=== PATIENT | female | born 1940 | race African-American/Black ===

== ENCOUNTER 2018-07-01 14:56 | Observation (INO) | payer OTHER ==
--- OUTSIDE RECORDS SUMMARY | 2018-07-01 14:59 | XMS REPORT | Clinical Summary ---
:1940 Author Organization [facility] Address [address] [place] [address] Care Team Providers Name Role Phone Bonifacio Sahu MD Primary Care Provider Allergies Active Allergy Reactions Severity Noted Date Comments Codeine Itching, Rash Low 09/19/2015 Sulfa (Sulfonamide Antibiotics) Other (See Comments) 09/19/2015 headache Medications Medication Sig Dispensed Refills Start Date End Date Status metoprolol succinate XL Take 50 mg by 0 09/23/2015 Active (TOPROL-XL) 50 MG 24 hr mouth once daily. tablet Take on am of surgery amLODIPine (NORVASC) 10 Take 10 mg by 2 09/23/2015 Active MG tablet mouth once daily. Take of surgery levothyroxine Take 75 mcg by 0 10/24/2015 Active (SYNTHROID, LEVOTHROID) mouth daily. Take 75 MCG tablet am of surgery pantoprazole (PROTONIX) Take 40 mg by 0 10/24/2015 Active 40 MG EC tablet mouth daily. Take am surgery atorvastatin (LIPITOR) Take 40 mg by 0 11/26/2015 Active 40 MG tablet mouth daily. aspirin (ECOTRIN) 81 MG Take 81 mg by 0 Active enteric coated tablet mouth daily. alendronate (FOSAMAX) TAKE 1 TABLET BY 4 tablet 4 08/09/2016 Active 70 MG tablet MOUTH EVERY WEEK IN THE MORNING FOR 28 DAYS Active Problems Problem Noted Date Primary hyperparathyroidism 01/14/2016 Family History Medical History Relation Name Comments Arthritis Daughter Arthritis Mother Diabetes Mother 2009 Congenital heart disease Sister Relation Name Status Comments Daughter Alive Mother Sister Social History Tobacco Use Types Packs/Day Years Used Date Never Smoker Alcohol Use Drinks/Week oz/Week Comments No Sex Assigned at Date Recorded Not on file Job Start Date Occupation Industry Not on file Not on file Not on file Travel History Travel Start Travel End No recent travel history available. Last Filed Vital Signs Not on file Plan of Treatment Health Maintenance Due Date Last Done Comments SHINGLES VACCINES (#1) 02/18/1990 65+ PNEUMOCOCCAL VACCINE (1 of 2 - PCV13) 02/18/2005 PNEUMOCOCCAL POLYSACCHARIDE VACCINE AGE 65 AND OVER 02/18/2005 INFLUENZA VACCINE 11/23/2017 Results Not on fileafter 06/30/2017 Insurance Payer Benefit Plan / Group Subscriber ID Type Phone Address MEDICARE MEDICARE PART A AND B xxxxxxxxxx Medicare [place], [place] AETNA AETNA HMO,POS,EPO, MC/EC xxxxxxxxx HMO Advance Directives Patient has advance care planning documents on file. For more information, please contact:Ruben [address] [place] [address]
[2018-07-01 16:25] LABS: Absolute Lymphocytes (CBC) 1.1 K/uL (0.7-4.9); Absolute Monocytes 0.4 K/uL (0.1-1.3); Absolute Neutrophil 3.8 K/uL (1.8-8.0); Basophils % 0.9 % (0-1.3); Eosinophils % 1.2 % (0-4.4); Lymphocytes % 20.5 % (15.3-44.8); Monocytes % 6.9 % (3.3-12.3); RBC Red Blood Cell Count 4.81 M/uL (3.86-4.86)
[2018-07-01 16:31] LABS: Protime INR 1.01
[2018-07-01 16:45] LABS: ALT/SGPT 19 U/L (12-78); AST/SGOT 19 U/L (15-37); Albumin 3.3 g/dL (3.4-5.0); Alkaline Phosphatase 105 U/L (45-117); BUN Blood Urea Nitrogen 16 mg/dL (7-18); Bicarbonate 27 mmol/L (21-32); Bilirubin Direct 0.1 mg/dL (0-0.2); Bilirubin Total 0.3 mg/dL (0.2-1.0); Glucose Level 120 mg/dL (74-106); Magnesium 1.8 mg/dL (1.8-2.4); NT PRO-BNP 78 pg/mL (<450); Potassium 3.9 mmol/L (3.5-5.1); Protein, Total 7.4 g/dL (6.4-8.2); Sodium Level 144 mmol/L (136-145); Troponin (Emerg Dept Use Only) < 0.02 ng/mL (0.0-0.045)
--- NOTE | 2018-07-01 16:52 | RAD REPORT ---
EXAM DESCRIPTION: CT - Head Brain Wo Cont - 07/01/2018 4:27 pm CLINICAL HISTORY: Dizziness, syncope COMPARISON: None. TECHNIQUE: Axial 5 mm thick images of the head were obtained without IV contrast. All CT scans are performed using dose optimization technique as appropriate and may include automated exposure control or mA/KV adjustment according to patient size. FINDINGS: No intracranial hemorrhage, mass, edema or shift of mid-line structures. No acute cortical based infarction. Minimal atrophy changes are present. Chronic ischemic changes are present. Ventric les are in proportion to the amount of volume loss. No abnormal extra-axial fluid collections. Physio logic and arterial calcifications are present. Mastoid air cells and visualized portions of the paranasal sinuses are clear. No acute bony findings. IMPRESSION: Atrophy and chronic ischemic changes are present but no acute intracranial finding ident ifiable.
--- NOTE | 2018-07-01 16:55 | RAD REPORT ---
EXAM DESCRIPTION: RAD - Chest Single View - 07/01/2018 4:36 pm CLINICAL HISTORY: Syncope, shortness of breath COMPARISON: April 2011 TECHNIQUE: AP portable chest image was obtained 1619 hours . FINDINGS: No focal mass or consolidation. Lung markings are prominent and increased over comparison. Heart size is increased slightly and there is a mild increase in vasculature. No measurable pleural effusion and no pneumothorax. No acute bony abnormality seen. No acute aortic findings suspected. IMPRESSION: Heart, vasculature and interstitial markings are all slightly increased from the compari son. Findings are suspicious for mild failure or volume overload.
--- NOTE | 2018-07-01 17:33 | EDPHYS ---
Physician Documentation [facility] Name: Juliana Mclaughlin Age: 78 yrs Sex: Female : 1940 Arrival Date: 07/01/2018 Time: 14:57 Bed 16 Private MD: Bonifacio Yeager R ED Physician Magan Haji HPI: 07/01 16:03 This 78 yrs old Black Female presents to ER via Wheelchair with complaints of Dizziness.jr8 16:03 The patient presents with dizziness. Onset: The symptoms/episode began/occurred jr8 acutely, yesterday. Context: occurred at home, occurred while the patient was at rest. Modifying factors: The symptoms are alleviated by nothing, the symptoms are aggravated by changing position. Associated signs and symptoms: Pertinent positives: syncope. Severity of symptoms: At their worst the symptoms were moderate in the emergency department the symptoms have resolved. Patient's baseline: Neuro: alert and fully oriented, Motor: no deficits, Ambulation: walks without assistance, Speech: normal. The patient has not experienced similar symptoms in the past. The patient has not recently seen a physician. Historical: - Allergies: 15:11 Sulfa (Sulfonamide Antibiotics); ch - Home Meds: 15:11 atorvastatin 40 mg oral tab 1 tab once daily [Active]; pantoprazole 40 mg oral TbEC 1 ch tab once daily [Active]; Calcium Carbonate Oral [Active]; metoprolol tartrate 50 mg Oral tab 1 tab once daily [Active]; amlodipine 10 mg tab 1 tab once daily [Active]; levothyroxine 75 mcg tab 1 tab once daily [Active]; aspirin 81 mg Oral chew 1 tab once daily [Active]; - PMHx: 15:11 Hypertension; Hyperlipidemia; CARPEL TUNNEL, VERTIGO; Arthritis; ch - PSHx: 15:11 CARDIAC STENTS; ch - Immunization history:: Adult Immunizations up to date, Pneumococcal vaccine is up to date, Flu vaccine is not up to date. - Social history:: Smoking status: Patient/guardian denies using tobacco, Patient/guardian denies using alcohol, street drugs. - Ebola Screening: : Patient negative for fever greater than or equal to 101.5 degrees Fahrenheit, and additional compatible Ebola Virus Disease symptoms Patient denies exposure to infectious person Patient denies travel to an Ebola-affected area in the 21 days before illness onset No symptoms or risks identified at this time. ROS: 16:03 Eyes: Negative for injury, pain, redness, and discharge, ENT: Negative for injury, jr8 pain, and discharge, Neck: Negative for injury, pain, and swelling, Cardiovascular: Negative for chest pain, palpitations, and edema, Respiratory: Negative for shortness of breath, cough, wheezing, and pleuritic chest pain, Abdomen/GI: Negative for abdominal pain, nausea, vomiting, diarrhea, and constipation, Back: Negative for injury and pain, MS/Extremity: Negative for injury and deformity, Skin: Negative for injury, rash, and discoloration. 16:03 Neuro: Positive for dizziness, syncope. Exam: 16:03 Eyes: Pupils equal round and reactive to light, extra-ocular motions intact. Lids and jr8 lashes normal. Conjunctiva and sclera are non-icteric and not injected. Cornea within normal limits. Periorbital areas with no swelling, redness, or edema. ENT: Nares patent. No nasal discharge, no septal abnormalities noted. Tympanic membranes are normal and external auditory canals are clear. Oropharynx with no redness, swelling, or masses, exudates, or evidence of obstruction, uvula midline. Mucous membranes moist. Neck: Trachea midline, no thyromegaly or masses palpated, and no cervical lymphadenopathy. Supple, full range of motion without nuchal rigidity, or vertebral point tenderness. No Meningismus. Cardiovascular: Regular rate and rhythm with a normal S1 and S2. No gallops, murmurs, or rubs. Normal PMI, no JVD. No pulse deficits. Respiratory: Lungs have equal breath sounds bilaterally, clear to auscultation and percussion. No rales, rhonchi or wheezes noted. No increased work of breathing, no retractions or nasal flaring. Abdomen/GI: Soft, non-tender, with normal bowel sounds. No distension or tympany. No guarding or rebound. No evidence of tenderness throughout. Back: No spinal tenderness. No costovertebral tenderness. Full range of motion. Skin: Warm, dry with normal turgor. Normal color with no rashes, no lesions, and no evidence of cellulitis. MS/ Extremity: Pulses equal, no cyanosis. Neurovascular intact. Full, normal range of motion. Neuro: Awake and alert, GCS 15, oriented to person, place, time, and situation. Cranial nerves II-XII grossly intact. Motor strength 5/5 in all extremities. Sensory grossly intact. Cerebellar exam normal. Normal gait. Vital Signs: 15:11 BP 165 / 85; Pulse 67; Resp 16; Temp 97.5; Pulse Ox 100% on R/A; Weight 84.37 kg; ch Height 5 ft. 9 in. (175.26 cm); Pain 6/10; 16:10 BP 162 / 87; Pulse 68; Resp 17; Pulse Ox 99% on R/A; rb1 17:10 BP 177 / 89; Pulse 69; Resp 14; Pulse Ox 99% on R/A; rb1 19:00 BP 174 / 88; Pulse 68; Resp 16; Pulse Ox 99% on R/A; oe 20:00 BP 160 / 85; Pulse 70; Resp 16; Pulse Ox 99% on R/A; oe 21:00 BP 170 / 92; Pulse 72; Resp 16; Pulse Ox 99% on R/A; oe 21:38 BP 170 / 86; Pulse 74; Resp 20; Pulse Ox 97% on R/A; Pain 0/10; lp1 15:11 Body Mass Index 27.47 (84.37 kg, 175.26 cm) ch NIH Stroke Scale Scores: 16:03 NIHSS Score: 0 jr8 MDM: 15:37 Patient medically screened. [facility] 17:31 Data reviewed: vital signs, nurses notes, lab test result(s), EKG, radiologic studies, [facility] CT scan, plain films. Data interpreted: Pulse oximetry: on room air is 100 %. Interpretation: normal. Counseling: I had a detailed discussion with the patient and/or guardian regarding: the historical points, exam findings, and any diagnostic results supporting the discharge/admit diagnosis, lab results, radiology results, the need for further work-up and treatment in the hospital. Physician consultation: Bonifacio Yeager MD was called at 17:32, was contacted at 17:32, regarding admission, to the telemetry unit. consult, patient's condition. 07/01 15:51 Order name: Basic Metabolic Panel [facility] 07/01 15:51 Order name: CBC with Diff 8 07/01 15:51 Order name: LFT's [facility] 07/01 15:51 Order name: Magnesium; Complete Time: 16:51 jr07/01 15:51 Order name: NT PRO-BNP 07/01 15:51 Order name: PT-INR; Complete Time: 16:51 8 07/01 15:51 Order name: Troponin (emerg Dept Use Only); Complete Time: 16:51 8 07/01 15:51 Order name: XRAY Chest (1 view); Complete Time: 17:19 07/01 15:51 Order name: EKG; Complete Time: 15:51 8 07/01 15:51 Order name: CT Head Brain wo Cont; Complete Time: 16:54 8 07/01 15:51 Order name: Basic Metabolic Panel; Complete Time: 16:51 EDMS 07/01 15:51 Order name: CBC with Automated Diff; Complete Time: 16:32 EDMS 07/01 15:51 Order name: Liver (Hepatic) Function; Complete Time: 16:51 EDMS 07/01 15:51 Order name: NT PRO-BNP; Complete Time: 16:51 EDMS 07/01 15:51 Order name: Cardiac monitoring; Complete Time: 17:12 07/01 15:51 Order name: EKG - Nurse/Tech; Complete Time: 17:12 8 07/01 15:51 Order name: IV Saline Lock; Complete Time: 17:34 8 07/01 15:51 Order name: Labs collected and sent; Complete Time: 17:34 8 07/01 15:51 Order name: O2 Per Protocol; Complete Time: 17:34 8 07/01 15:51 Order name: O2 Sat Monitoring; Complete Time: 17:34 jr8 Administered Medications: No medications were administered Disposition: 07/01/18 17:32 Hospitalization ordered by Bonifacio Yeager for Observation. Preliminary diagnosis is Syncope and collapse. - Bed requested for Telemetry/MedSurg (observation). - Status is Observation. lp1 - Condition is Stable. - Problem is new. - Symptoms have improved. UTI on Admission? No NIH Stroke Scale - NIH Stroke Score Date: 07/01/2018 Time: 16:03 Total Score = 0 1a. Level of Consciousness (LOC) - 0(Alert) 1b. Level of Consciousness (LOC) (Year \T\ Age) - 0(Both) 1c. LOC Commands (Open \T\ Closes Eyes/Gas Dispenser) - 0(Both) 2. Best Gaze (Lateral Gaze Paresis) - 0(Normal) 3. Visual Field Loss - 0(No visual loss) 4. Facial Palsy - 0(Normal) 5a. Left Arm: Motor (10-second hold) - 0(No drift) 5b. Right Arm: Motor (10-second hold) - 0(No drift) 6a. Left Leg: Motor (5-second hold - always test supine) - 0(No drift) 6b. Right Leg: Motor (5-second hold - always test supine) - 0(No drift) 7. Limb Ataxia (finger/nose \T\ heel/soni - test with eyes open) - 0(Absent) 8. Sensory Loss (pinprick arms/legs/face) - 0(Normal) 9. Best Language: Aphasia (description/naming/reading) - 0(No aphasia) 10. Dysarthria (speech clarity - read or repeat words) - 0(Normal) 11. Extinction and Inattention (visual/tactile/auditory/spatial/personal) - 0(No abnormality) Initials: jr8 Addendum: 07/03/2018 09:31 Co-signature as Attending Physician, Magan Haji MD I agree with the [facility] assessment and plan of care. Signatures: Dispatcher [employer] EDCora Yu RN RN ch Lewis, Kimberly, RN RN kl Anderson, Corey, MD MD cha Pena, Laura, RN RN lp1 Jaren Mathis PA PA jr8 Corrections: (The following items were deleted from the chart) 07/01 19:51 17:32 Hospitalization Ordered by Bonifacio Yeager MD for Observation. Preliminary diagnosis is Syncope and collapse. Bed requested for Telemetry/MedSurg (observation). Status is Observation. Condition is Stable. Problem is new. Symptoms have improved. UTI on Admission? No. jr8 21:44 19:51 07/01/2018 17:32 Hospitalization Ordered by Bonifacio Yeager MD for lp1 Observation. Preliminary diagnosis is Syncope and collapse. Bed requested for Telemetry/MedSurg (observation). Status is Observation. Condition is Stable. Problem is new. Symptoms have improved. UTI on Admission? No. kl
--- NOTE | 2018-07-01 17:33 | ER ---
Nurse's Notes [facility] Name: Juliana Mclaughlin Age: 78 yrs Sex: Female : 1940 Arrival Date: 07/01/2018 Time: 14:57 Bed 16 Private MD: Bonifacio Yeager R Diagnosis: Syncope and collapse Presentation: 07/01 15:07 Presenting complaint: Patient states: dizziness, syncope x1(TODAY), started . ch worse with movement, better when laying down, +nausea. Transition of care: patient was not received from another setting of care. Onset of symptoms was June 29, 2018. Risk Assessment: Do you want to hurt yourself or someone else? Patient reports no desire to harm self or others. Initial Sepsis Screen: Does the patient meet any 2 criteria? No. Patient's initial sepsis screen is negative. Does the patient have a suspected source of infection? No. Patient's initial sepsis screen is negative. Care prior to arrival: None. 15:07 Method Of Arrival: Wheelchair 15:07 Acuity: EMMA 3 ch Triage Assessment: 15:11 General: Appears in no apparent distress. comfortable, Behavior is calm, cooperative, ch appropriate for age. Pain: Complains of pain in right arm Pain currently is 6 out of 10 on a pain scale. Pain began years ago. Neuro: Level of Consciousness is awake, alert, obeys commands, Oriented to person, place, time, situation, Slate Mixer are equal bilaterally Moves all extremities. Gait is unsteady, Speech is normal, Facial symmetry appears normal, Facial symmetry: tongue is midline, Pupils are PERRLA, Reports dizziness, a syncopal episode. Historical: - Allergies: 15:11 Sulfa (Sulfonamide Antibiotics); ch - Home Meds: 15:11 atorvastatin 40 mg oral tab 1 tab once daily [Active]; pantoprazole 40 mg oral TbEC 1 ch tab once daily [Active]; Calcium Carbonate Oral [Active]; metoprolol tartrate 50 mg Oral tab 1 tab once daily [Active]; amlodipine 10 mg tab 1 tab once daily [Active]; levothyroxine 75 mcg tab 1 tab once daily [Active]; aspirin 81 mg Oral chew 1 tab once daily [Active]; - PMHx: 15:11 Hypertension; Hyperlipidemia; CARPEL TUNNEL, VERTIGO; Arthritis; ch - PSHx: 15:11 CARDIAC STENTS; ch - Immunization history:: Adult Immunizations up to date, Pneumococcal vaccine is up to date, Flu vaccine is not up to date. - Social history:: Smoking status: Patient/guardian denies using tobacco, Patient/guardian denies using alcohol, street drugs. - Ebola Screening: : Patient negative for fever greater than or equal to 101.5 degrees Fahrenheit, and additional compatible Ebola Virus Disease symptoms Patient denies exposure to infectious person Patient denies travel to an Ebola-affected area in the 21 days before illness onset No symptoms or risks identified at this time. Screenin:35 Abuse screen: Denies threats or abuse. Nutritional screening: No deficits noted. rb1 Tuberculosis screening: No symptoms or risk factors identified. Fall Risk None identified. Assessment: 15:35 General: Appears in no apparent distress. comfortable, Behavior is calm, cooperative, rb1 Denies fever. Neuro: Level of Consciousness is awake, alert, obeys commands, Oriented to person, place, time, situation, Reports dizziness. Cardiovascular: Capillary refill < 3 seconds is brisk in bilateral fingers. Respiratory: Airway is patent Respiratory effort is even, unlabored, Respiratory pattern is regular, symmetrical. GI: No signs and/or symptoms were reported involving the gastrointestinal system. : No signs and/or symptoms were reported regarding the genitourinary system. Derm: Skin is dry, Skin is normal, Skin temperature is warm. Musculoskeletal: No signs and/or symptoms reported regarding the musculoskeletal system. 15:35 Pain: Denies pain. rb1 16:35 Reassessment: Patient appears in no apparent distress at this time. No changes from rb1 previously documented assessment. 17:35 Reassessment: Patient appears in no apparent distress at this time. Patient and/or rb1 family updated on plan of care and expected duration. Pain level reassessed. Patient is alert, oriented x 3, equal unlabored respirations, skin warm/dry/pink. Family at bedside. 20:22 Reassessment: Patient appears in no apparent distress at this time. Patient and/or jb4 family updated on plan of care and expected duration. Pain level reassessed. Patient is alert, oriented x 3, equal unlabored respirations, skin warm/dry/pink. 21:39 Reassessment: Patient appears in no apparent distress at this time. Patient is alert, lp1 oriented x 3, equal unlabored respirations, skin warm/dry/pink. Assisted patient on to bedpan; aware of pending admission. Vital Signs: 15:11 BP 165 / 85; Pulse 67; Resp 16; Temp 97.5; Pulse Ox 100% on R/A; Weight 84.37 kg; ch Height 5 ft. 9 in. (175.26 cm); Pain 6/10; 16:10 BP 162 / 87; Pulse 68; Resp 17; Pulse Ox 99% on R/A; rb1 17:10 BP 177 / 89; Pulse 69; Resp 14; Pulse Ox 99% on R/A; rb1 19:00 BP 174 / 88; Pulse 68; Resp 16; Pulse Ox 99% on R/A; oe 20:00 BP 160 / 85; Pulse 70; Resp 16; Pulse Ox 99% on R/A; oe 21:00 BP 170 / 92; Pulse 72; Resp 16; Pulse Ox 99% on R/A; oe 21:38 BP 170 / 86; Pulse 74; Resp 20; Pulse Ox 97% on R/A; Pain 0/10; lp1 15:11 Body Mass Index 27.47 (84.37 kg, 175.26 cm) ch NIH Stroke Scale Scores: 16:03 NIHSS Score: 0 jr8 ED Course: 14:57 Patient arrived in ED. as 14:59 Bonifacio Yeager MD is Private Physician. as 15:08 Triage completed. ch 15:11 Arm band placed on left wrist. Patient placed in waiting room. ch 15:35 Patient has correct armband on for positive identification. Bed in low position. Call rb1 light in reach. Side rails up X 1. air sampling and monitoring on. Pulse ox on. NIBP on. Warm blanket given. 15:36 Jaren Mathis PA is PHCP. jr8 15:36 Magan Haji MD is Attending Physician. jr8 15:45 Inserted saline lock: 22 gauge in right antecubital area, using aseptic technique. rb1 Blood collected. 15:51 Karlene Gama, RN is Primary Nurse. rb1 16:27 CT completed. Patient tolerated procedure well. Patient moved to CT via stretcher. mw3 Patient moved back from CT. 16:27 CT Head Brain wo Cont In Process Unspecified. EDMS 16:36 XRAY Chest (1 view) In Process Unspecified. EDMS 17:11 EKG done, by ED staff, reviewed by Jaren COREA. [facility] 17:32 Bonifacio Yeager MD is Hospitalizing Provider. jr8 19:20 Diet: Patient given snack. Patient given juice. bb 21:18 No provider procedures requiring assistance completed. Patient admitted, IV remains in lp1 place. Administered Medications: No medications were administered Outcome: 17:32 Decision to Hospitalize by Provider. jr8 21:36 Condition: stable lp1 21:36 Instructed on the need for admit. 21:39 Admitted to Tele accompanied by tech, via stretcher, room 404, with chart, Report lp1 called to FLAVIA Pham 21:44 Patient left the ED. lp1 NIH Stroke Scale - NIH Stroke Score Date: 07/01/2018 Time: 16:03 Total Score = 0 1a. Level of Consciousness (LOC) - 0(Alert) 1b. Level of Consciousness (LOC) (Year \T\ Age) - 0(Both) 1c. LOC Commands (Open \T\ Closes Eyes/Telephone Lineman) - 0(Both) 2. Best Gaze (Lateral Gaze Paresis) - 0(Normal) 3. Visual Field Loss - 0(No visual loss) 4. Facial Palsy - 0(Normal) 5a. Left Arm: Motor (10-second hold) - 0(No drift) 5b. Right Arm: Motor (10-second hold) - 0(No drift) 6a. Left Leg: Motor (5-second hold - always test supine) - 0(No drift) 6b. Right Leg: Motor (5-second hold - always test supine) - 0(No drift) 7. Limb Ataxia (finger/nose \T\ heel/soni - test with eyes open) - 0(Absent) 8. Sensory Loss (pinprick arms/legs/face) - 0(Normal) 9. Best Language: Aphasia (description/naming/reading) - 0(No aphasia) 10. Dysarthria (speech clarity - read or repeat words) - 0(Normal) 11. Extinction and Inattention (visual/tactile/auditory/spatial/personal) - 0(No abnormality) Initials: [place] Signatures: Dispatcher [employer] EDMS Cora Peralta RN RN ch Martinez, Amelia as Ballard, Brenda, RN RN bb Renee Hunt RN RN lp1 Jaren Mathis PA PA jr8 Karlene Gama RN RN rb1 Ed Bunch RN RN jb4 Tk Mckay Deanna 3 Felisa Hernandez 3 Corrections: (The following items were deleted from the chart) 16:23 16:00 BP 164 / 41; Pulse 51bpm; Resp 17bpm; Pulse Ox 95% RA; Pain 5/10; rb1 rb1
[2018-07-01] MEDS ORDERED: ACETAMINOPHEN 500 MG TAB PO PRN (22:12)
[2018-07-01] MEDS ORDERED: ONDANSETRON 4 MG/2 ML VIAL IV PRN (22:12)
[2018-07-01 22:34] VITALS: BMI 26.6
[2018-07-01 23:51] LABS: Urine Appearance CLEAR; Urine Bilirubin NEGATIVE (NEG); Urine Blood TRACE (NEG); Urine Color YELLOW; Urine Glucose NEGATIVE (NEG); Urine Protein NEGATIVE (NEG); Urine Urobilinogen 0.2 mg/dL (0.2-1.0)
[2018-07-01 23:53] LABS: Urine Microscopic Reflex NO UMIC
[2018-07-02 04:12] LABS: Absolute Lymphocytes (CBC) 1.5 K/uL (0.7-4.9); Absolute Monocytes 0.5 K/uL (0.1-1.3); Absolute Neutrophil 3.2 K/uL (1.8-8.0); Basophils % 0.8 % (0-1.3); Eosinophils % 1.9 % (0-4.4); Hematocrit 36.1 % (36.0-45.0); Lymphocytes % 27.6 % (15.3-44.8); MPV 7.9 fL (7.6-11.3); Monocytes % 9.1 % (3.3-12.3); RBC Red Blood Cell Count 4.47 M/uL (3.86-4.86)
[2018-07-02 04:25] LABS: Potassium 3.5 mmol/L (3.5-5.1)
--- NOTE | 2018-07-02 05:55 | EKG ---
Test Date: 2018-07-01 Test Time: 16:59:22 Slag Dumper: PAMELA MEASUREMENT RESULTS: Intervals: Rate: 65 OK: 198 QRSD: 84 QT: 444 QTc: 461 [place]: P: 62 OK: 198 QRS: 43 T: 53 INTERPRETIVE STATEMENTS: Normal sinus rhythm Normal ECG Compared to ECG 01/20/2011 09:12:44 No significant changes Electronically Signed On 07-02-18 05:54:40 CDT by Galindo Gomez
[2018-07-02] MEDS: LEVOTHYROXINE SOD 0.075 MG TAB PO SCH (07:25)
[2018-07-02] MEDS: PANTOPRAZOLE 40MG TABLET PO SCH (07:25)
[2018-07-02] MEDS: ASPIRIN EC 81 MG TAB PO SCH (08:38)
[2018-07-02] MEDS: METOPROLOL XL 50 MG TAB PO SCH (08:38)
[2018-07-02] MEDS: AMLODIPINE 10 MG TAB PO SCH (08:39)
[2018-07-02] MEDS ORDERED: VITAMIN D3 PO SCH (09:00)
[2018-07-02] MEDS ORDERED: CALCIUM CARBONATE PO SCH (09:00)
[2018-07-02] MEDS ORDERED: VIT D TB PO SCH (09:00)
[2018-07-02] MEDS ORDERED: ASPIRIN EC 81 MG TAB PO SCH (09:00)
[2018-07-02] MEDS ORDERED: [UNRECOGNIZED DRUG - OTHER] PO SCH (09:00)
--- NOTE | 2018-07-02 15:54 | CON ---
History Of Present Illness: Mrs. Mclaughlin had an episode of syncope. She has been very dizzy. Anytime she moves her head very much, she gets dizziness, she sees the room spinning. Yesterday, she tried t o get up and fell to the side. She actually fell on the couch where she had trying to been arise fro m. She does not know if she was unconscious or not. She said at one point, she open her eyes and co uld not see anything. Presently, she feels better. Since she has been here in the hospital, she has had normal movement. She has a history of intracoronary stent, it was more than 5 years ago. She h as a history of hypothyroidism, hypertension, dyslipidemia, coronary heart disease. Outpatient medic ations are Protonix, metoprolol, levothyroxine, aspirin, amlodipine, calcium carbonate. I know she a lso takes a statin. She does not know what it is and I will try to check my office records and see i f we can confirm what statin medicine she should be on. Physical Examination: Vital Signs: 6 feet 9 inches and 180 pounds. HEENT: Normal carotids. No bruit. Lungs: Clear. Heart: Within normal limits. Abdomen: Soft. Extremities: Within normal limits. Imaging Data: Electrocardiogram normal. Impression: If the patient is probably having intense vertigo, we will make sure she does not have c oronary artery disease or left ventricular dysfunction or arrhythmia. Thank you very much for your kind referral. JOSE Voice ID: [id number] Report ID: [id number]
[2018-07-02] MEDS: CALCIUM CARB 500MG/VIT D 200 IU TAB PO SCH (16:43)
[2018-07-02] MEDS ORDERED: PNEUMOCOCCAL VACCINE 0.5 ML IMVAC ONE (17:00)
[2018-07-02] MEDS ORDERED: INFLUENZA VACCINE (for 3y+) 0.5 ML DOSE IMVAC ONE (17:00)
--- NOTE | 2018-07-02 17:29 | HP ---
Date of Admission: 07/01/2018 Chief Complaint: Dizziness and syncope. History Of Present Illness: A 78-year-old female was brought to the emergency room with recurrent ep isodes of dizziness and near syncope. The patient claims that she was cloudy after recovered from he r near syncope, however, she did not describe any seizure activity. No history of actual injuries. The patient denied any history of chest pain or any other symptoms prior to the onset of dizziness or syncope. Past Medical History: The patient claims that she has seen Dr. Gomez and she had a Holter monitor d one in the office. In the past, however, she was told that there was no significant pathology. The patient does have history of hypertension, hyperlipidemia, and history of coronary artery disease, monsivais ryanne had coronary angioplasty. Other medical problems include osteoarthritis and carpal tunnel syndrome. Past Surgical History: Positive for carotid angioplasty. Family History: Noncontributory. Personal History: Nonsmoker. Allergies: SULFA. Home Medicines: Please refer to the chart. Review of Systems: The patient denied any chest pain. No history of fever, chills, rigors. Physical Examination: General: Revealed a 78-year-old female, fully alert at the time of exam. HEENT: Negative. Neck: Supple. JVD negative. Chest: Clear. Heart: Regular. Abdomen: Soft. Extremities: No edema. Laboratory Data: Laboratory done in the emergency room. White count normal, hemoglobin normal Chem profile with BUN 16, creatinine 1.48. Troponin negative. BNP normal. Assessment: 1.Dizziness and near syncope. 2.Known coronary artery disease, status post angioplasty. 3.Hypertension. 4.Hyperlipidemia. Plan: The patient looks stable in the room. She will be advised to ambulate in the room and see whe ther she will have any symptoms. The patient may even have pure labyrinthine vertigo; however, Dr. Anup montiel has been consulted to see whether any other possible etiology can be documented with her dizzin ess. JEFFREY/ALLY Voice ID: [id number]
--- NOTE | 2018-07-02 22:24 | RAD REPORT ---
EXAM DESCRIPTION: US - CP - 07/02/2018 10:17 pm CLINICAL HISTORY: dizziness TIA symptomology, headache COMPARISON: Parathyroid Imaging dated 08/19/2015 TECHNIQUE: Real-time sonographic evaluation of both carotid systems was performed. Doppler interroga tion was performed with waveform tracing bilaterally. FINDINGS: Normal high resistance waveforms are noted in both external carotid arteries. The common c arotid arteries and internal carotid arteries show normal low resistance waveforms. Moderate mixed plaque is seen in both carotid bulbs, slightly greater on the right. Peak systolic and end diastolic velocity values and the ICA/CCA ratios are in the non-hemodynamically significant rang e. Antegrade flow seen in both vertebral arteries. IMPRESSION: Moderate mixed plaque is seen in both carotid bulbs, slightly greater on the right. No evidence of a hemodynamically significant stenosis.
[2018-07-03] MEDS: LEVOTHYROXINE SOD 0.075 MG TAB PO SCH (05:58)
[2018-07-03] MEDS: PANTOPRAZOLE 40MG TABLET PO SCH (05:58)
[2018-07-03] MEDS: CALCIUM CARB 500MG/VIT D 200 IU TAB PO SCH (09:06)
[2018-07-03] MEDS: METOPROLOL XL 50 MG TAB PO SCH (09:06)
[2018-07-03] MEDS: AMLODIPINE 10 MG TAB PO SCH (09:07)
[2018-07-03] MEDS: ASPIRIN EC 81 MG TAB PO SCH (09:07)
--- NOTE | 2018-07-03 09:49 | RAD REPORT ---
EXAM DESCRIPTION: MRI - Brain Wo Cont - 07/03/2018 8:54 am CLINICAL HISTORY: dizziness Headache, drowsiness. COMPARISON: Head Brain Wo Cont dated 07/01/2018 TECHNIQUE: Multi-sequence, multiplanar MR imaging of the brain was performed without contrast. FINDINGS: No intracranial hemorrhage, hydrocephalus or extra-axial fluid collections.Mild brain atro phy with mild T2 and FLAIR hyperintensities in the periventricular and deep white matter compatible w ith chronic microvascular ischemic changes. No edema or shift of midline structures. No findings to s uspect brain mass. DWI is negative for acute CVA. Midline structures are normally formed. 12 mm mucous retention cyst or polyp is present in the inferior left maxillary antrum. The paranasal sinuses and mastoids are otherwise clear. IMPRESSION: Negative for acute CVA or other acute intracranial process.
[2018-07-03 11:05] VITALS: O2SAT 98
--- NOTE | 2018-07-03 12:52 | ECHO ---
HEIGHT: 5 ft 9 in WEIGHT: 180 lb 3.2 oz DATE OF STUDY: 07/03/[address]: Galindo Gomez MD 2-DIMENSIONAL: YES M.MODE: YES DOPPLER: YES COLOR FLOW: YES TDS: PORTABLE: DEFINITY: BUBBLE STUDY: DIAGNOSIS: SYNCOPE CARDIAC HISTORY: CATHERIZATION: YES SURGERY: NO PROSTHETIC VALVE: NO PACEMAKER: NO MEASUREMENTS (cm) DIASTOLIC (NORMALS) SYSTOLIC (NORMALS) IVSd 1.0 (0.6-1.2) LA Diam 4.0 (1.9-4.0) LVEF 69% LVIDd 4.8 (3.5-5.7) LVIDs 30 (2.0-3.5) %FS 39% LVPWd 1.2 (0.6-1.2) Ao Diam 2.9 (2.0-3.7) 2 DIMENSIONAL ASSESSMENT: RIGHT ATRIUM: NORMAL LEFT ATRIUM: NORMAL RIGHT VENTRICLE: NORMAL LEFT VENTRICLE: NORMAL TRICUSPID VALVE: NORMAL MITRAL VALVE: NORMAL PULMONIC VALVE: NORMAL AORTIC VALVE: NORMAL PERICARDIAL EFFUSION: NONE AORTIC ROOT: NORMAL LEFT VENTRICULAR WALL MOTION: NORMAL DOPPLER/COLOR FLOW: MILD AORTIC AND TRICUSPID REGURGITATION. NORMAL RIGHT VENTRICULAR SYSTOLIC PRESSURE. COMMENTS: NORMAL 2-DIMENSIONAL ECHOCARDIOGRAM. MILD AORTIC AND TRICUSPID REGURGITATION. TECHNOLOGIST: GIGI MUNGUIA
[2018-07-03 13:00] VITALS: BP 134/76; TEMP 97.7
== END 2018-07-03 16:00 | disposition home or self-care (01) ==
LOC: ER 14:56 → ERHOLD 19:05 → 4TH 21:39
PROVIDERS: ADMIT Internal Medicine; ATTEND Internal Medicine
DX: R42 Dizziness and giddiness (principal); R55 Syncope and collapse; I10 Essential (primary) hypertension; E78.5 Hyperlipidemia, unspecified; I25.10 Atherosclerotic heart disease of native coronary artery without angina pectoris; Z98.61 Coronary angioplasty status; Z88.2 Allergy status to sulfonamides
CPT/HCPCS: 93005; 93306; 85025 ×2; 80048 ×2; 36415; 83735; 85610; 80076; 81003; 84484 ×3; 83880; 70450; 71045; 93880; 70551; 97162; 94760; 99285; G0378 ×2

== ENCOUNTER 2018-08-03 18:47 | Emergency (ER) | payer OTHER ==
--- OUTSIDE RECORDS SUMMARY | 2018-08-03 18:49 | XMS REPORT | Clinical Summary ---
:1940 Author Organization [facility] Address [address] [place] [address] Care Team Providers Name Role Phone Bonifacio [...] AGE 65 AND OVER 02/18/2005 INFLUENZA VACCINE 11/23/2018 Results Not on fileafter 08/02/2017 Insurance Payer Benefit Plan / Group Subscriber ID Type Phone Address MEDICARE MEDICARE PART A AND B xxxxxxxxxx Medicare [place], [place] AETNA AETNA HMO,POS,EPO, MC/EC xxxxxxxxx HMO Advance Directives Patient has advance care planning documents on file. For more information, please contact:Ruben [address] [place] [address]
[2018-08-03 20:53] LABS: Urine Blood TRACE (NEG); Urine Glucose NEGATIVE (NEG); Urine Protein NEGATIVE (NEG); Urine Specific Gravity 1.015 (1.005-1.030)
[2018-08-03 22:11] LABS: Albumin 3.5 g/dL (3.4-5.0); Bilirubin Direct 0.1 mg/dL (0-0.2); Bilirubin Total 0.4 mg/dL (0.2-1.0); Potassium 3.9 mmol/L (3.5-5.1); Protein, Total 7.5 g/dL (6.4-8.2)
[2018-08-03 22:12] LABS: Absolute Lymphocytes (CBC) 0.8 K/uL (0.7-4.9); Absolute Monocytes 0.3 K/uL (0.1-1.3); Absolute Neutrophil 7.7 K/uL (1.8-8.0); Basophils % 0.4 % (0-1.3); Eosinophils % 0.1 % (0-4.4); Hematocrit 38.8 % (36.0-45.0); Lymphocytes % 8.9 % (15.3-44.8); MPV 8.4 fL (7.6-11.3); Monocytes % 2.9 % (3.3-12.3); RBC Red Blood Cell Count 4.73 M/uL (3.86-4.86)
[2018-08-03] MEDS ORDERED: ONDANSETRON 4 MG/2 ML VIAL ONE (22:13)
[2018-08-03] MEDS ORDERED: MORPHINE 4 MG/ML SYR ONE (22:13)
--- NOTE | 2018-08-03 23:10 | ER ---
Nurse's Notes [facility] Name: Juliana Mclaughlin Age: 78 yrs Sex: Female : 1940 Arrival Date: 08/03/2018 Time: 18:49 Bed 15 Private MD: Diagnosis: Calculus of kidney with calculus of ureter Presentation: 08/03 18:53 Presenting complaint: Patient states: left flank pain started first and now radiates to sv the LLQ, c/o vomiting, denies burning with urination. Transition of care: patient was not received from another setting of care. Onset of symptoms was July 2018. Care prior to arrival: None. 18:53 Method Of Arrival: Wheelchair sv 18:53 Acuity: EMMA 3 sv 19:20 Risk Assessment: Do you want to hurt yourself or someone else? Patient reports no jb4 desire to harm self or others. Initial Sepsis Screen: Does the patient meet any 2 criteria? No. Patient's initial sepsis screen is negative. Does the patient have a suspected source of infection? No. Patient's initial sepsis screen is negative. Historical: - Allergies: 18:54 Sulfa (Sulfonamide Antibiotics); sv 18:54 Codeine; sv - PMHx: 18:54 Arthritis; CARPEL TUNNEL, VERTIGO; Hyperlipidemia; Hypertension; Kidney stones; sv - PSHx: 18:54 CARDIAC STENTS; sv Screenin:20 Abuse screen: Denies threats or abuse. Nutritional screening: No deficits noted. jb4 Tuberculosis screening: No symptoms or risk factors identified. Fall Risk IV access (20 points). Gait- Normal/Bed Rest/Wheelchair (0 pts) Total Martinez Fall Scale indicates No Risk (0-24 pts). Assessment: 19:20 General: Appears in no apparent distress. uncomfortable, Behavior is calm, cooperative, jb4 appropriate for age. Pain: Complains of pain in abdomen Pain radiates to posterior aspect of left lateral abdomen and anterior aspect of left lateral abdomen Pain currently is 8 out of 10 on a pain scale. Quality of pain is described as crampy, stabbing. Neuro: Level of Consciousness is awake, alert, obeys commands, Oriented to person, place, time, situation. Cardiovascular: Patient's skin is warm and dry. Respiratory: Airway is patent Respiratory effort is even, unlabored, Respiratory pattern is regular, symmetrical. GI: Abdomen is non-distended, obese, Bowel sounds present X 4 quads. Abd is soft X 4 quads Abd is non tender in right upper quadrant, right lower quadrant and left lower quadrant Abdomen is tender to palpation in left upper quadrant Reports nausea. : Reports urinary frequency. EENT: No signs and/or symptoms were reported regarding the EENT system. Derm: Skin is intact, Skin is dry, Skin is normal, Skin temperature is warm. Musculoskeletal: Circulation, motion, and sensation intact. 20:20 Reassessment: Patient appears in no apparent distress at this time. Patient and/or jb4 family updated on plan of care and expected duration. Pain level reassessed. Patient is alert, oriented x 3, equal unlabored respirations, skin warm/dry/pink. 21:00 Reassessment: Patient appears in no apparent distress at this time. Patient and/or jb4 family updated on plan of care and expected duration. Pain level reassessed. Patient is alert, oriented x 3, equal unlabored respirations, skin warm/dry/pink. 22:14 Reassessment: Patient appears in no apparent distress at this time. Patient and/or jb4 family updated on plan of care and expected duration. Pain level reassessed. Patient is alert, oriented x 3, equal unlabored respirations, skin warm/dry/pink. 23:27 Reassessment: Patient appears in no apparent distress at this time. Patient and/or jb4 family updated on plan of care and expected duration. Pain level reassessed. Patient is alert, oriented x 3, equal unlabored respirations, skin warm/dry/pink. Pt discharged to [facility], waiting for her ride to pick her up. Patient states feeling better. Vital Signs: 18:54 BP 153 / 80; Pulse 80; Resp 20; Temp 98.8; Pulse Ox 100% ; sv 19:30 BP 162 / 81; Pulse 76; Resp 16; Pulse Ox 99% on R/A; jb4 20:30 BP 157 / 91; Pulse 72; Resp 16; Pulse Ox 99% on R/A; jb4 22:00 BP 153 / 88; Pulse 69; Resp 16; Pulse Ox 100% on R/A; jb4 23:00 BP 145 / 75; Pulse 65; Resp 16; Pulse Ox 96% on R/A; jb4 ED Course: 18:49 Patient arrived in ED. tw3 18:53 Triage completed. sv 18:54 Arm band placed on. sv 19:18 Morris Child MD is Attending Physician. tw4 19:20 Patient has correct armband on for positive identification. Bed in low position. Call jb4 light in reach. Side rails up X 1. Pulse ox on. NIBP on. 20:25 Ed Bunch, RN is Primary Nurse. jb4 21:10 Initial lab(s) drawn, by me, sent to lab. Inserted saline lock: 20 gauge in right jb4 antecubital area, using aseptic technique. Blood collected. 21:[address] vr 21:43 CT Stone Protocol In Process Unspecified. EDMS 23:15 Alo Feliciano MD is Referral Physician. tw4 23:29 No provider procedures requiring assistance completed. IV discontinued, intact, jb4 bleeding controlled, No redness/swelling at site. Administered Medications: 22:03 Drug: Zofran 4 mg Route: IVP; Site: right antecubital; jb4 22:46 Follow up: Response: No adverse reaction; Nausea is decreased jb4 22:05 Drug: morphine 4 mg Route: IVP; Site: right antecubital; jb4 22:46 Follow up: Response: No adverse reaction; Pain is decreased jb4 Outcome: 23:09 Discharge ordered by . tw4 23:30 Discharged to home via wheelchair. jb4 23:30 Condition: stable 23:30 Discharge instructions given to patient, Instructed on discharge instructions, follow up and referral plans. medication usage, Demonstrated understanding of instructions, follow-up care, medications, Prescriptions given X 2. 23:31 Patient left the ED. jb4 Signatures: Dispatcher [employer] EDMS Anali Perez, Julissa Miles RN, James, RN RN jb4 Wendy Neff tw3 Morris Child MD MD tw4 Corrections: (The following items were deleted from the chart) 18:54 18:53 Presenting complaint: Patient states: left flank pain started first and now sv radiates to the LLQ, denies burning with urination. sv 23:30 21:10 Initial lab(s) drawn, by me, by EMS personnel. jb4 jb4
--- NOTE | 2018-08-03 23:10 | EDPHYS ---
Physician Documentation [facility] Name: Juliana Mclaughlin Age: 78 yrs Sex: Female : 1940 Arrival Date: 08/03/2018 Time: 18:49 Bed 15 Private MD: ED Physician Morris Child HPI: 08/04 04:53 This 78 yrs old Black Female presents to ER via Wheelchair with complaints of Vomiting. tw4 04:53 The patient presents to the emergency department with nausea, vomiting. Onset: The tw4 symptoms/episode began/occurred today. Possible causes: flare up of bowel problem. The symptoms are aggravated by nothing. The symptoms are alleviated by nothing. Associated signs and symptoms: The patient has no apparent associated signs or symptoms. Severity of symptoms: At their worst the symptoms were mild in the emergency department the symptoms are unchanged. The patient has not experienced similar symptoms in the past. Historical: - Allergies: 08/03 18:54 Sulfa (Sulfonamide Antibiotics); sv 18:54 Codeine; sv - PMHx: 18:54 Arthritis; CARPEL TUNNEL, VERTIGO; Hyperlipidemia; Hypertension; Kidney stones; sv - PSHx: 18:54 CARDIAC STENTS; sv ROS: 08/04 04:53 Constitutional: Negative for fever, chills, and weight loss, Eyes: Negative for injury, tw4 pain, redness, and discharge, Cardiovascular: Negative for chest pain, palpitations, and edema, Respiratory: Negative for shortness of breath, cough, wheezing, and pleuritic chest pain, Back: Negative for injury and pain, MS/Extremity: Negative for injury and deformity, Neuro: Negative for headache, weakness, numbness, tingling, and seizure. Abdomen/GI: Positive for nausea and vomiting, nausea, vomiting, and diarrhea, nausea, vomiting, Negative for abdominal pain, constipation, abdominal cramps, abdominal distension, black/tarry stool, rectal pain, rectal bleeding, bowel incontinence. Exam: 04:53 Constitutional: This is a well developed, well nourished patient who is awake, alert, tw4 and in no acute distress. Head/Face: Normocephalic, atraumatic. Chest/axilla: Normal chest wall appearance and motion. Nontender with no deformity. No lesions are appreciated. Cardiovascular: Regular rate and rhythm with a normal S1 and S2. No gallops, murmurs, or rubs. Normal PMI, no JVD. No pulse deficits. Respiratory: Lungs have equal breath sounds bilaterally, clear to auscultation and percussion. No rales, rhonchi or wheezes noted. No increased work of breathing, no retractions or nasal flaring. Abdomen/GI: Soft, non-tender, with normal bowel sounds. No distension or tympany. No guarding or rebound. No evidence of tenderness throughout. MS/ Extremity: Pulses equal, no cyanosis. Neurovascular intact. Full, normal range of motion. Neuro: Awake and alert, GCS 15, oriented to person, place, time, and situation. Cranial nerves II-XII grossly intact. Motor strength 5/5 in all extremities. Sensory grossly intact. Cerebellar exam normal. Normal gait. 04:53 Back: pain, is absent, ROM is normal, CVA tenderness, is noted on the left. Vital Signs: 08/03 18:54 BP 153 / 80; Pulse 80; Resp 20; Temp 98.8; Pulse Ox 100% ; sv 19:30 BP 162 / 81; Pulse 76; Resp 16; Pulse Ox 99% on R/A; jb4 20:30 BP 157 / 91; Pulse 72; Resp 16; Pulse Ox 99% on R/A; jb4 22:00 BP 153 / 88; Pulse 69; Resp 16; Pulse Ox 100% on R/A; jb4 23:00 BP 145 / 75; Pulse 65; Resp 16; Pulse Ox 96% on R/A; jb4 MDM: 19:19 Patient medically screened. [facility] 08/04 04:53 Differential diagnosis: Nonspecific abd pain, gastritis, pancreatitis. Data reviewed: tw4 vital signs, nurses notes. 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 Counseling: I had a detailed discussion with the patient and/or guardian regarding: the historical points, exam findings, and any diagnostic results supporting the discharge/admit diagnosis, lab results, radiology results. Medication response: Toradol relieved patient's pain. The symptoms have resolved. Response to treatment: and as a result, I will discharge patient. Special discussion: I discussed with the patient/guardian in detail that at this point there is no indication for admission to the hospital. It is understood, however, that if the symptoms persist or worsen the patient needs to return immediately for re-evaluation. 08/03 20:41 Order name: Urine Dipstick--Ancillary (enter results) 6 08/03 21:17 Order name: Basic Metabolic Panel [facility] 08/03 21:17 Order name: CBC with Diff [facility] 08/03 21:17 Order name: Creatinine for Radiology [facility] 08/03 21:17 Order name: Hepatic Function [facility] 08/03 21:17 Order name: Lipase [facility] 08/03 21:17 Order name: IV Saline Lock; Complete Time: 21:27 [facility] 08/03 21:17 Order name: Labs collected and sent; Complete Time: :27 [facility] 08/03 21:17 Order name: CT Stone Protocol [facility] 08/03 22:17 Order name: Manual Differential EDMS Administered Medications: 08/03 22:03 Drug: Zofran 4 mg Route: IVP; Site: right antecubital; jb4 22:46 Follow up: Response: No adverse reaction; Nausea is decreased [facility] 22:05 Drug: morphine 4 mg Route: IVP; Site: right antecubital; jb4 22:46 Follow up: Response: No adverse reaction; Pain is decreased 4 Disposition: 08/03/18 23:09 Discharged to Home. Impression: Calculus of kidney with calculus of ureter. - Condition is Stable. - Discharge Instructions: Kidney Stones, Renal Colic. - Prescriptions for Tramadol 50 mg Oral Tablet - take 1 tablet by ORAL route every 8 hours as needed; 12 tablet. Flomax 0.4 mg Oral Capsule, Sust. Release 24 hr - take 1 capsule by ORAL route once daily 1/2 hour following the same meal each day; 30 capsule. - Medication Reconciliation Form, Thank You Letter, Antibiotic Education, Prescription Opioid Use form. - Follow up: Private Physician; When: Upon discharge from the Emergency Department; Reason: If symptoms return, Recheck today's complaints, Continuance of care. Follow up: Alo Feliciano MD; When: Upon discharge from the Emergency Department; Reason: If symptoms return, Recheck today's complaints, Continuance of care. - Problem is new. - Symptoms have improved. Signatures: Dispatcher [employer] EDMS Anali Perez RN RN Ed Bunch RN RN jb4 Morris Child MD MD tw4 Corrections: (The following items were deleted from the chart) 23:15 23:09 08/03/2018 23:09 Discharged to Home. Impression: Calculus of kidney with calculus tw4 of ureter. Condition is Stable. Forms are Medication Reconciliation Form, Thank You Letter, Antibiotic Education, Prescription Opioid Use. Follow up: Private Physician; When: Upon discharge from the Emergency Department; Reason: If symptoms return, Recheck today's complaints, Continuance of care. Problem is new. Symptoms have improved. tw4 23:31 23:15 08/03/2018 23:09 Discharged to Home. Impression: Calculus of kidney with calculus jb4 of ureter. Condition is Stable. Discharge Instructions: Kidney Stones, Renal Colic. Prescriptions for Tramadol 50 mg Oral Tablet - take 1 tablet by ORAL route every 8 hours as needed; 12 tablet, Flomax 0.4 mg Oral Capsule, Sust. Release 24 hr - take 1 capsule by ORAL route once daily 1/2 hour following the same meal each day; 30 capsule. and Forms are Medication Reconciliation Form, Thank You Letter, Antibiotic Education, Prescription Opioid Use. Follow up: Private Physician; When: Upon discharge from the Emergency Department; Reason: If symptoms return, Recheck today's complaints, Continuance of care. Follow up: lAo Feliciano; When: Upon discharge from the Emergency Department; Reason: If symptoms return, Recheck today's complaints, Continuance of care. Problem is new. Symptoms have improved. tw4
[2018-08-03 23:36] VITALS: TEMP 98.8
[2018-08-03 23:43] VITALS: BP 145/75; O2SAT 96
[2018-08-03 23:56] LABS: Blood Morphology Comment NOT SEEN (NOT SEEN); Platelet Estimate ADEQ
--- NOTE | 2018-08-04 11:43 | RAD REPORT ---
EXAM DESCRIPTION: CT - Stone Protocol - 08/03/2018 10:19 pm CLINICAL HISTORY: The patient is 78 years old and is Female; ABD PAIN TECHNIQUE: Axial computed tomography images of the abdomen and pelvis without intravenous contrast. Sagittal and coronal reformatted images were created and reviewed. This CT exam was performed usi ng one or more of the following dose reduction techniques: automated exposure control, adjustment o f the mA and/or kV according to patient size, and/or use of iterative reconstruction technique. COMPARISON: No relevant prior studies available. FINDINGS: LUNG BASES: Unremarkable. No mass. No consolidation. MEDIASTINUM: A small hiatal hernia is present. ABDOMEN: LIVER: A 2.2 cm cyst within the inferior right hepatic lobe is present. No further follow-up is necessary. GALLBLADDER AND BILE DUCTS: No calcified stones. No ductal dilation. PANCREAS: Unremarkable. No ductal dilation. SPLEEN: Unremarkable. ADRENALS: Unremarkable. No mass. KIDNEYS AND URETERS: Moderate left hydronephrosis and proximal hydroureter is present secondary to a 6 mm proximal left ureteral calculus. Significant left perinephric stranding is present. Bilat eral parapelvic renal cysts are noted, the largest of which measures approximately 2.6 cm. No follow- up imaging is recommended. There is no other obstructing renal or ureteral calculus. STOMACH AND BOWEL: The stomach is decompressed. A few small bowel loops in the left upper quadra nt are slightly prominent. There is no mucosal thickening. The remainder of the small bowel is normal in caliber. Stool is present throughout colon. No evidence of bowel obstruction. No significant hamzah l wall thickening. Colonic diverticulosis is noted, without associated inflammatory changes to sugges t diverticulitis. PELVIS: APPENDIX: No findings to suggest acute appendicitis. BLADDER: The bladder is well distended. No stones. REPRODUCTIVE: The patient is status post hysterectomy. ABDOMEN and PELVIS: INTRAPERITONEAL SPACE: Unremarkable. No free air. No significant fluid collection. BONES/JOINTS: Degenerative change of the bones is present. Suggestion of a synovial cyst at the level of the left hip is present. SOFT TISSUES: The soft tissues are normal. VASCULATURE: Atherosclerosis of the vasculature is present. The vessels are normal in course and caliber. No abdominal aortic aneurysm. LYMPH NODES: Unremarkable. No enlarged lymph nodes. IMPRESSION: 1. Moderate left hydronephrosis and mild proximal hydroureter is present secondary to a 6 mm proximal left ureteral calculus. 2. Colonic diverticulosis without evidence of diverticulitis. Electronically signed by: Mae Castillo MD 08/03/2018 10:09 PM CDT Due to temporary technical issues with the PACS/Fluency reporting system, reports are being signed by the in house radiologist as a courtesy to ensure prompt reporting. The interpreting radiologist is f ully responsible for the content of the report.
== END 2018-08-03 23:31 | disposition home or self-care (01) ==
LOC: ER 18:47
DX: N20.2 Calculus of kidney with calculus of ureter (principal); I10 Essential (primary) hypertension; Z88.2 Allergy status to sulfonamides; Z88.5 Allergy status to narcotic agent; Z95.818 Presence of other cardiac implants and grafts
CPT/HCPCS: 85025; 80048; 36415; 80076; 81003; 83690; 76377; 74176; 96375; 96374; 99284; J2405

== ENCOUNTER 2018-08-22 07:39 | Day surgery (SDC) | payer OTHER ==
--- OUTSIDE RECORDS SUMMARY | 2018-08-22 07:43 | XMS REPORT | Clinical Summary ---
:1940 Author Organization [facility] Address [address] [place] [address] Care Team Providers Name Role Phone Bonifacio [...] INFLUENZA VACCINE 11/23/2018 Results Not on fileafter 08/21/2017 Insurance Payer Benefit Plan / Group Subscriber ID Type Phone Address MEDICARE MEDICARE PART A AND B xxxxxxxxxx Medicare [place], [place] AETNA AETNA HMO,POS,EPO, MC/EC xxxxxxxxx HMO Advance Directives Patient has advance care planning documents on file. For more information, please contact:Ruben [address] [place] [address]
[2018-08-22] MEDS ORDERED: GENTAMICIN 80 MG/100 ML BAG 80 MG/100 ML BAG IV ONE (08:04)
[2018-08-22] MEDS ORDERED: Ringers Lactate 1,000 ML IV ONE (08:04)
[2018-08-22] MEDS ORDERED: LIDOCAINE 1% MPF 5 ML VIAL ONE (09:07)
[2018-08-22] MEDS ORDERED: FENTANYL CITR 100 MCG/2 ML ONE (09:07)
[2018-08-22] MEDS ORDERED: PROPOFOL 200 MG/20 ML VIAL IV ONE (09:07)
[2018-08-22] MEDS ORDERED: KETOROLAC 30 MG/ML INJ ONE (09:39)
[2018-08-22] MEDS ORDERED: ONDANSETRON 4 MG/2 ML VIAL ONE (09:43)
[2018-08-22 10:31] VITALS: TEMP 97.6
[2018-08-22 10:51] VITALS: BP 138/76; O2SAT 97
== END 2018-08-22 11:50 | disposition home or self-care (01) ==
LOC: OR 07:39
PROVIDERS: ATTEND Urology
PROC: 0T778DZ Dilation of Left Ureter with Intraluminal Device, Via Natural or Artificial Opening Endoscopic (ICD-10-PCS; principal; 2018-08-22 09:00)
DX: N20.2 Calculus of kidney with calculus of ureter (principal); Q62.39 Other obstructive defects of renal pelvis and ureter; N39.0 Urinary tract infection, site not specified; E78.00 Pure hypercholesterolemia, unspecified; E03.9 Hypothyroidism, unspecified; I10 Essential (primary) hypertension; M19.90 Unspecified osteoarthritis, unspecified site; Z79.82 Long term (current) use of aspirin; Z79.899 Other long term (current) drug therapy; Z95.5 Presence of coronary angioplasty implant and graft
CPT/HCPCS: 52332; 87088; 87086; 50590; J2704; J3010; J1580; J2405; Q9967

== ENCOUNTER 2021-06-11 11:10 | Day surgery (SDC) | payer OTHER ==
--- NOTE | 2021-06-09 12:16 | RAD REPORT ---
EXAM DESCRIPTION: RAD - Chest Pa And Lat (2 Views) - 06/09/2021 12:05 pm CLINICAL HISTORY: Pre op pending heart catheterization COMPARISON: Two view chest July 2018 TECHNIQUE: Frontal and lateral views of the chest were obtained. FINDINGS: The lungs are clear. Mildly prominent interstitial pattern matches comparison. Heart size is normal and central vasculature is within normal limits. No pleural effusion or pneumothorax seen . No acute bony finding noted. Mild tortuosity of the aorta noted. No change from 2019. IMPRESSION: No acute cardiopulmonary process. No significant change from comparison study.
[2021-06-09 12:31] LABS: Potassium 4.2 mmol/L (3.5-5.1)
[2021-06-09 12:35] LABS: Absolute Lymphocytes (CBC) 1.4 K/uL (0.7-4.9); Hematocrit 31.1 % (36.0-45.0); Lymphocytes % 26.1 % (15.3-44.8); MPV 7.8 fL (7.6-11.3); RBC Red Blood Cell Count 3.96 M/uL (3.86-4.86)
[2021-06-09 12:39] LABS: Protime INR 0.96
[~2021-06-11 11:10] MED LIST: HEPA 1000U/500MLS 2,000 UNIT/1,000 ML BAG IV ONE; LIDOCAINE 1% 20 ML MDV ONE
[2021-06-11] MEDS ORDERED: NA CHLORIDE 0.9% 500 ML ONE (11:21)
[2021-06-11 11:50] VITALS: TEMP 97.9
[2021-06-11] MEDS ORDERED: FENTANYL CITR 100 MCG/2 ML ONE (13:23)
[2021-06-11] MEDS ORDERED: HEPARIN 5000 UNIT/ML 1 ML VIAL ONE (13:23)
[2021-06-11] MEDS ORDERED: NITROGLYCERIN 100 MCG/ML SYR (for cath lab use only) IV ONE (13:24)
[2021-06-11] MEDS ORDERED: VERAPAMIL HCL 10 MG/4 ML VIAL IV ONE (13:24)
[2021-06-11] MEDS ORDERED: ATROPINE SULF 1 MG/10 ML SYR IV ONE (13:24)
[2021-06-11] MEDS ORDERED: MIDAZOLAM HCL 2 MG/2 ML INJ ONE (13:24)
[2021-06-11 14:58] VITALS: O2SAT 100
[2021-06-11 16:17] VITALS: BP 138/73
--- NOTE | 2021-06-12 01:51 | OP ---
Date of Procedure: 06/11/2021 Surgeon: PAULA COLLINS Procedure Performed: Selective coronary angiogram. Indication: New-onset chest pain, suggestive of unstable angina. Access: Right radial artery 6-Singaporean, closed with TR band. Complications: None. Bleeding: Less than 10 mL. Anesthesia: Total sedation time was 50 minutes. Description Of Procedure: After risks, benefits, and alternatives were explained, the patient agreed to procedure and signed informed consent. [facility] and draped in sterile fashion. Then, we accessed the right radial artery using pedia tric micropuncture kit and placed a 6-Singaporean Slender sheath and took 5-Singaporean [place] 4.0 catheter into the aortic root, engaged the left main and left coronary artery, took standard views and then remove d the catheter and sheath, placed TR band with good hemostasis. Findings: 1.Left main is very large and no disease. 2.LAD, a very large vessel, tortuous with luminal irregularities throughout. Normal diagonal branch es. 3.Left circumflex, very large and dominant circulation. OM1 branch has a very high takeoff and with proximal 50% stenosis in the midportion. There is a stent that is patent without ISR. The proximal circumflex has 40% stenosis and in the mid circumflex, there is a patent stent. 4.RCA. 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 Conclusion: Severe RCA stenosis. The CHEMICAL PRODUCTION MACHINE OPERATOR distally with a good collaterals from the LAD. Otherwise, there is mild coronary artery disease. Plan: Medical management and aggressive risk factor modification. If continues to be symptomatic on that, I will attempt CHEMICAL PRODUCTION MACHINE OPERATOR PCI. SR/MODL Voice ID: [id number] Report ID: [id number]
== END 2021-06-11 16:00 | disposition home or self-care (01) ==
LOC: CCL 11:10
PROVIDERS: ATTEND Internal Medicine
DX: I25.110 Atherosclerotic heart disease of native coronary artery with unstable angina pectoris (principal); I25.82 Chronic total occlusion of coronary artery; I10 Essential (primary) hypertension; E78.5 Hyperlipidemia, unspecified; Z95.5 Presence of coronary angioplasty implant and graft; Z88.2 Allergy status to sulfonamides; Z88.6 Allergy status to analgesic agent; Z20.822 Contact with and (suspected) exposure to COVID-19; Z82.49 Family history of ischemic heart disease and other diseases of the circulatory system
CPT/HCPCS: 93005; 85025; 80048; 36415; 85610; 85730; 71046; 93454; U0003; C1893; J1644 ×2; J2250; J3010; J7040

== ENCOUNTER 2021-08-09 08:55 | Inpatient (IN) | payer OTHER ==
--- OUTSIDE RECORDS SUMMARY | 2021-08-09 08:58 | XMS REPORT | Continuity of Care Document ---
:1940 Author Organization [facility] t Address [address] [place] [address] Care Team Providers Name Role Phone Adelina ALMAZAN Primary Care Physician URENA Attending Clinician Unavailable Urena TIP SCOURER Attending Clinician JOE AWAD Attending Clinician Unavailable Only, Pob2 Test Attending Clinician Unavailable Joe Awad DO Attending Clinician URENA Admitting Clinician Unavailable Payers Payer Name Policy Type Policy Number Effective Date Expiration Date S shari BREWER PLS [id number] 2021 O 00:00:00 MEDICARE PART A [id number] 2005 \\T\\ B 00:00:00 Problems Condition Condition Condition Status Onset Resolution Last Treating Co mments Source Name Details Category Date Date Treatment Clinician Date Primary Primary Disease Active Methodi hyperparat hyperparat 9-21 st hyroidism hyroidism 00:00: [facility] 00 l No known No known Disease Unive rs active active ity of problems problems [place] [facility] Allergies, Adverse Reactions, Alerts Allergy Allergy Status Severity Reaction(s) Onset Inactive Treating Comm ents Source Name Type Date Date Clinician SULFA Drug Active Other-Cmnt Univer s (SULFONA Class 3-25 ity of MIDE 00:00: [place] ANTIBIOT 00 Medical ICS) Branch Sulfa Propensi Active Other - See Uni vers (Sulfona ty to comments 3-25 ity of mide adverse 00:00: [place] Antibiot reaction 00 Medica l ics) s Branch Codeine Propensi Active Rash Methodi ty to 09-18 st adverse 00:00: Hospita reaction 00 l s to drug Sulfa Propensi Active Other (See headache Me thodi (Sulfona ty to Comments) 09-18 st mide adverse 00:00: Hospita Antibiot reaction 00 l ics) s to drug NO KNOWN Drug Active Univers ALLERGIE Class ity of S [facility] Family History Family Member Diagnosis Comments Start Date Stop Date Source Natural [facility] Natural mother Arthritis [facility] [place] [facility] Natural mother Diabetes [facility] [place] [facility] Natural sister Congenital heart Meth [facility] disease Social History Social Habit Start Date Stop Date Quantity Comments Source Exposure to Not sure [facility] SARS-CoV-2 [facility] (event) [place] Alcohol intake 2016-01-15 2016-01-15 [facility] 00:00:00 00:00:00 non-drinker of alcohol (finding) Sex [birth year] [facility] [place] [facility] 00:00:00 00:00:00 Smoking Status Start Date Stop Date Source Unknown if ever smoked [facility] y [facility] Never smoked tobacco [facility] ospital Medications Ordered Filled Start Stop Current Ordering Indication Dosage Frequency Signature Comments Components Source Medication Medication Date Date Medication? Clinician (SIG) Name Name dicyclomine 2021- No 20mg 20 mg, Uni vers (BENTYL) 07-17 Oral, ity of tablet 20 23:00: 22:03 ONCE, 1 [place] mg [place] :00 dose, On Medical Fri Branch 07/17/21 at 1800, TENA ondansetron 2021- No 4mg 4 mg, Slow Univers (ZOFRAN 07-17 IV Push, ity of (PF)) 21:15: 20:15 ONCE, 1 [place] injection 4 00 :00 dose, On Medi julia mg Fri Branch 07/17/21 at 1615, TENA iopamidol 2021- No [id number] 100mL 100 mL, Univers (ISOVUE 07-17 Intravenou ity o f 370-500 mL) 21:08: 21:09 s, ONCE, 1 [place] injection 00 :00 dose, On Medica l 100 mL Fri Branch 07/17/21 at 1615, Routine NaCl 0.9% No 500mL at 999 Univ ers (NS) bolus 3-25 03-25 mL/hr, 500 it y of infusion 20:45: 21:11 mL, IV [place] 500 mL 00 :00 Infusion, Medical ONCE, 1 Branch dose, On 07/17/21 at 1545, TENA dicyclomine Yes [id number] 20mg Take 1 Univers 20 mg 3-25 tablet by ity of tablet 00:00: mouth 4 [place] 00 (four) Medical times Branch daily as needed for Abdominal pain. ondansetron Yes [id number] 4mg Take 1 Univers 4 mg 3-25 tablet by ity of disintegrat 00:00: mouth [place] ing tablet 00 every 8 Medica l (eight) Branch hours as needed for Nausea and Vomiting (N/V). alendronate Yes TAKE 1 Meth binu (FOSAMAX) 4-[address] 70 MG 00:00: MOUTH Hospita tablet 00 EVERY WEEK l IN THE MORNING FOR 28 DAYS aspirin Yes 81mg QD Take 81 mg Meth binu (ECOTRIN) 1-[address] 81 MG 10:14: daily. Hospita enteric 41 l coated tablet atorvastati Yes 40mg QD Take 40 mg Methodi n (LIPITOR) 8-[address] 40 MG 00:00: daily. Hospita tablet 00 l levothyroxi Yes 75ug QD Take 75 Met hodi ne 7-[address] (SYNTHROID, 00:00: mouth Hospi ta LEVOTHROID) 00 daily. l 75 MCG Take am of tablet surgery pantoprazol Yes 40mg QD Take 40 mg Methodi e 7-[address] (PROTONIX) 00:00: daily. Hospi ta 40 MG EC 00 Take am l tablet surgery metoprolol Yes 50mg QD Take 50 mg M ethodi succinate 09-[address] XL 00:00: once Hospita (TOPROL-XL) 00 daily. l 50 MG 24 hr Take on am tablet of surgery amLODIPine Yes 10mg QD Take 10 mg M ethodi (NORVASC) 5-[address] 10 MG 00:00: once Hospita tablet 00 daily. l Take of surgery Immunizations Ordered Filled Immunization Date Status Comments Kathy atkinson Immunization Name Name SARS-COV-2 COVID-19 2020-07-07 Completed Unive rsity of PFIZER VACCINE 00:00:00 [facility] SARS-COV-2 COVID-19 2020-07-07 Completed Unive rsity of PFIZER VACCINE 00:00:00 [facility] SARS-COV-2 COVID-19 2020-06-16 Completed Unive rsity of PFIZER VACCINE 00:00:00 [facility] SARS-COV-2 COVID-19 2020-06-16 Completed Unive rsity of PFIZER VACCINE 00:00:00 [facility] Vital Signs Vital Name Observation Time Observation Value Comments Source Systolic blood 2021-07-17 22:00:00 131 mm[Hg] Univer sity of pressure [facility] Diastolic blood 2021-07-17 22:00:00 76 mm[Hg] Unive rsity of pressure [facility] Heart rate 2021-07-17 22:00:00 73 /min [facility] Respiratory rate 2021-07-17 22:00:00 17 /min [facility] Oxygen saturation in 2021-07-17 22:00:00 99 /min [facility] Arterial blood by [facility] Pulse oximetry [place] Body temperature 2021-07-17 19:21:00 37 Madhavi [facility] Body height 2021-07-17 19:21:00 175.3 cm [facility] Body weight 2021-07-17 19:21:00 78.472 kg [facility] BMI 2021-07-17 19:21:00 25.55 kg/m2 [facility] Procedures Procedure Date / Time Performed Performing Clinician Kathy atkinson CT ABDOMEN PELVIS W 2021-07-17 21:11:38 Jesus Urena [facility] URINALYSIS 2021-07-17 20:36:00 Jesus Urena [facility] LIPASE 2021-07-17 19:47:00 Jesus Urena [facility] TROPONIN I 2021-07-17 19:47:00 Jesus Urena [facility] COMP. METABOLIC PANEL 2021-07-17 19:47:00 Jesus Urena [facility] ([id number]) [facility] CBC WITH DIFF 2021-07-17 19:47:00 Jesus Urena [facility] N-TERMINAL PRO-BNP 2021-07-17 19:47:00 [facility] NOTICE OF PRIVACY 2021-07-17 19:29:55 Doctor Unassigned, No Univ [facility] PRACTICES Name [facility] CONSENT/REFUSAL FOR 2021-07-17 19:29:37 [facility], [facility] AND Name [facility] TREATMENT Plan of Care Planned Activity Planned Date Details Comments Source Future Scheduled 2021-04-15 COVID-19 VACCINE (1) Met [facility] Test 03:15:48 [code = COVID-19 VACCINE (1)] Future Scheduled 2021-04-15 SHINGLES VACCINES (#1) M [facility] Test 03:15:48 [code = SHINGLES VACCINES (#1)] Future Scheduled 2021-04-15 65+ [facility]AL [facility] Test 03:15:48 VACCINE (1 of 1 - PPSV23) [code = 65+ PNEUMOCOCCAL VACCINE (1 of 1 - PPSV23)] Future Scheduled 2021-04-15 INFLUENZA VACCINE Method ist Hospital Test 03:15:48 [code = INFLUENZA VACCINE] Encounters Start End Encounter Admission Attending Care Care Encounter Source Date/Time Date/Time Type Type Clinicians Facility Department ID 2021-07-17 2021-07-17 Emergency X JADE [facility] ERT [id number] Univers 14:19:00 17:42:00 JESUS abreu [facility] 2021-07-17 2021-07-17 Emergency Jade VTERVIN [id number] Univers 14:19:00 17:42:00 Jesus TELLEZ [id number] i ty [facility] [id number] [facility] [id number] [place] [id number] Branch 2021-04-23 2021-04-23 Outpatient R OLGA [facility] [id number] Univers 09:15:00 09:15:00 MICHAEL itperfecto [facility] 2021-04-23 2021-04-23 Laboratory Only, Adc Pob2 Test [facility] [id number] .[id number] [facility] 09:15:00 09:15:00 Only Michael Awad [id number] .10 ity [facility] [id number] Andi DANIEL [id number] Tn dical NAL 225 Branch BUILDING Results Test Description Test Time Test Comments Results Result Comments Source TROPONIN I 2021-07-17 20:37:13 Test Item Value Reference Range Interpretation Comme nts TROPONIN I (test code = 0.009 ng/mL See_Comment [Au tomated message] The 8024812161) system which ge nerated this result tra nsmitted reference range : <=0.034. The reference r phani was not used to int erpret this result as normal/abnormal . JOSE (test code = JOSE) Reference (Normal) Range (defined by the 99th percentile reference limit): <= 0.034 ng/mL Note: Cardiac troponin begins to rise 3-4 hours after the onset of ischemia. Repeat in 4-6 hours if the sample was drawn within 3-4 hours of the onset of the symptom and found normal. Diagnosis of myocardial injury is made with acute changes in cTn concentrations with at least one serial sample above the 99th percentile upper reference limit (URL), taken together with the patient's clinical presentation. Biotin has been reported to cause a negative bias, interpret results relative to patient's use of biotin. Lab Interpretation Normal (test code = 75354-5) [id number] 20:33:56 Test Item Value Reference Range Interpretation Comments NT-proBNP (test code 405 pg/mL See_Comment [Autom ated = 7748022206) message] The system which generated this result transmitted reference range : <=450. The reference range was not used to interpret this result as normal/abnormal . JOSE (test code = JOSE) Biotin has been reported to cause a negative bias, interpret results relative to patient's use of biotin. Lab Interpretation Normal (test code = 74820-1) [facility] ([id number])2021-07-17 20:26:30 Test Item Value Reference Range Interpretation Comments NA (test code = 140 mmol/L 135-145 6901854378) K (test code = 4.7 mmol/L 3.5-5.0 8550381061) CL (test code = 108 mmol/L 98-108 9960119172) CO2 TOTAL (test code = 24 mmol/L 23-31 1104822033) AGAP (test code = 2-16 9249878986) BUN (test code = 31 mg/dL 7-23 H 8911981802) GLUCOSE (test code = 113 mg/dL 70-110 H 9666826260) CREATININE (test code = 1.36 mg/dL 0.50-1.04 H 6597646287) TOTAL BILI (test code = 0.5 mg/dL 0.1-1.8 3035575821) CALCIUM (test code = 8.6 mg/dL 8.6-10.6 3159159163) T PROTEIN (test code = 6.0 g/dL 6.3-8.2 L 9452740542) ALBUMIN (test code = 3.5 g/dL 3.5-5.0 8684864361) ALK PHOS (test code = 75 U/L 34-122 8799781968) ALTv (test code = 15 U/L 5-35 2-6) AST(SGOT) (test code = 28 U/L 13-40 3267852451) eGFR (test code = mL/min/1.73m2 4920796185) JOSE (test code = JOSE) Association of Glomerular Filtration Rate (GFR) and Staging of Kidney Disease* + --+ --+ ------+| GFR (mL/min/1.73 m2) ?| With Kidney Damage ?| ?Without Kidney Damage+ --------+ --------+ +| ?>90 ?| ?Stage one ?| ? Normal ?+ ---+ ---+ -------+| ?60-89 ?| ?Stage two ?| ? Decreased GFR ? + --+ --+ ------+| ?30-59 ?| ?Stage three ?| ? Stage three ? + --+ --+ ------+| ?15-29 ?| ?Stage four ? | ? Stage four ?+ ---+ ---+ -------+| ?<15 (or dialysis) ? ?| ?Stage five ? | ? Stage five ?+ ---+ ---+ -------+ *Each stage assumes the associated GFR level has been in effect for at least three months. ?Stages 1 to 5, with or without kidney disease, indicate chronic kidney disease. Notes: Determination of stages one and two (with eGFR >59mL/min/1.73 m2) requires estimation of kidney damage for at least three months as defined by structural or functional abnormalities of the kidney, manifested by either:Pathological abnormalities or Markers of kidney damage (including abnormalities in the composition of the blood or urine or abnormalities in imaging tests). Lab Interpretation Abnormal (test code = 70826-5) [facility] 20:25:55 Test Item Value Reference Range Interpretation Comments LIPASE (test code = 4856274246) 75 U/L 0-220 Lab Interpretation (test code = Normal 71645-2) [facility] WITH [id number] 19:58:29 Test Item Value Reference Range Interpretation Comments WBC (test code = See_Comment [Automated 6690-2) message] The sy stem which generated this result transmitted reference range : 4.30 - 11.10 10*3/?L. The reference range was not used to interpret this result as normal/abnormal . RBC (test code = See_Comment L [Automated 789-8) message] The sy stem which generated this result transmitted reference range : 3.93 - 5.25 10*6/?L. The reference range was not used to interpret this result as normal/abnormal . HGB (test code = 8.0 g/dL 11.6-15.0 L 718-7) HCT (test code = 25.5 % 35.7-45.2 L 4544-3) MCV (test code = 76.8 fL 80.6-95.5 L 787-2) MCH (test code = 24.1 pg 25.9-32.8 L 785-6) MCHC (test code = 31.4 g/dL 31.6-35.1 L 786-4) RDW-SD (test code = 45.8 fL 39.0-49.9 83299-3) RDW-CV (test code = 16.3 % 12.0-15.5 H 788-0) PLT (test code = See_Comment [Automated 777-3) message] The sy stem which generated this result transmitted reference range : 166 - 358 10*3/ ?L. The reference r phani was not used to interpret this result as normal/abnormal . MPV (test code = 9.4 fL 9.5-12.9 L 23168-1) NRBC/100 WBC (test See_Comment [Automat ed code = 4840198351) message] The system which generated this result transmitted reference range : 0.0 - 10.0 /100 WBCs. The refer ence range was not u sed to interpret th is result as normal/abnormal . NRBC x10^3 (test code <0.01 See_Comment [Auto mated = 8996811466) message] The s ystem which generated this result transmitted reference range : 10*3/?L. The reference range was not used to interpret this result as normal/abnormal . GRAN MAT (NEUT) % 81.4 % (test code = 770-8) IMM GRAN % (test code 0.40 % = 4323314416) LYMPH % (test code = 14.0 % 736-9) MONO % (test code = 3.8 % 5905-5) EOS % (test code = 0.0 % 713-8) BASO % (test code = 0.4 % 706-2) GRAN MAT x10^3(ANC) 9.01 10*3/uL 1.88-7.09 H (test code = 0386354085) IMM GRAN x10^3 (test 0.04 10*3/uL 0.00-0.06 code = 0046968772) LYMPH x10^3 (test code 1.55 10*3/uL 1.32-3.29 = 731-0) MONO x10^3 (test code 0.42 10*3/uL 0.33-0.92 = 742-7) EOS x10^3 (test code = <0.03 0.03-0.39 L 711-2) BASO x10^3 (test code 0.04 10*3/uL 0.01-0.07 = 704-7) Lab Interpretation Abnormal (test code = 73919-4) [facility]"
[2021-08-09 11:18] LABS: Potassium 3.8 mmol/L (3.5-5.1)
[2021-08-09 11:25] LABS: Absolute Lymphocytes (CBC) 1.1 K/uL (0.7-4.9); Hematocrit 22.9 % (36.0-45.0); Lymphocytes % 19.5 % (15.3-44.8); MPV 7.2 fL (7.6-11.3); RBC Red Blood Cell Count 3.21 M/uL (3.86-4.86)
--- NOTE | 2021-08-09 12:55 | EDPHYS ---
Physician Documentation [facility] Name: Juliana Mclaughlin Age: 81 yrs Sex: Female : 1940 Arrival Date: 08/09/2021 Time: 09:05 Bed 7 Private MD: ED Physician Magan Haji HPI: 08/09 09:58 This 81 yrs old Black Female presents to ER via Unassigned with complaints of Abnormal pm1 Lab Results - sent by Toy for blood transfusion. 09:58 Patient sent to the ER by her primary care doctor Dr. Marie for blood transfusion. pm1 Patient had lab work drawn yesterday and was called today and informed that her blood levels are low and that she required a blood transfusion.. Onset: The symptoms/episode began/occurred today. Severity of symptoms: in the emergency department the symptoms are unchanged. The patient has experienced a previous episode, many years ago, 2006, requiring a blood transfusion. The patient has been recently seen by a physician: the patient's primary care provider, yesterday, with similar presenting complaints. 09:58 Patient presenting to PCP for generalized weakness yesterday, blood work drawn pm1 yesterday and patient sent to the ER for blood transfusion. Historical: - Allergies: 10:32 Codeine; jl7 10:32 Sulfa (Sulfonamide Antibiotics); jl7 - Home Meds: 10:32 amlodipine 10 mg tab 1 tab once daily [Active]; aspirin 81 mg Oral chew 1 tab once jl7 daily [Active]; atorvastatin 40 mg Oral tab 1 tab once daily [Active]; metoprolol tartrate 50 mg Oral tab 1 tab once daily [Active]; levothyroxine 75 mcg tab 1 tab once daily [Active]; pantoprazole 40 mg Oral TbEC 1 tab once daily [Active]; - PMHx: 10:32 Arthritis; CARPEL TUNNEL, VERTIGO; Hyperlipidemia; Hypertension; Kidney stones; jl7 - Immunization history:: Client reports receiving the 2nd dose of the Covid vaccine. - Social history:: Smoking status: Patient denies any tobacco usage or history of. ROS: 09:58 Cardiovascular: Negative for chest pain, palpitations, and edema, Abdomen/GI: Negative pm1 for abdominal pain, nausea, vomiting, diarrhea, and constipation. Positive for dark tarry stool 2 weeks ago that resolved 09:58 Back: Negative for injury and pain, MS/Extremity: Negative for injury and deformity, Skin: Negative for injury, rash, and discoloration. 09:58 : Negative for injury, bleeding, discharge, and swelling. 09:58 Constitutional: Positive for fatigue, malaise. 09:58 Respiratory: Positive for shortness of breath. 09:58 Neuro: Positive for dizziness, Negative for headache, numbness, tingling. Exam: 09:58 Constitutional: This is a well developed, well nourished patient who is awake, alert, pm1 and in no acute distress. Head/Face: Normocephalic, atraumatic. 09:58 Skin: Warm, dry with normal turgor. Normal color with no rashes, no lesions, and no evidence of cellulitis. MS/ Extremity: Pulses equal, no cyanosis. Neurovascular intact. Full, normal range of motion. 09:58 Eyes: Periorbital structures: appear normal, Pupils: no acute changes, Extraocular movements: no acute changes, Conjunctiva: pale, bilaterally. 09:58 ENT: Mouth: Lips: normal, moist. 09:58 Cardiovascular: Exam negative for acute changes, Rate: normal, Rhythm: regular, Pulses: no pulse deficits are appreciated, Heart sounds: normal, Edema: is not appreciated. 09:58 Respiratory: Exam negative for acute changes, respiratory distress, shortness of breath, Breath sounds: are clear throughout. 09:58 Abdomen/GI: Exam negative for acute changes, Inspection: abdomen appears normal, Palpation: abdomen is soft and non-tender. 09:58 Neuro: Exam negative for acute changes, Orientation: is normal, Mentation: is normal, Motor: is normal, moves all fours. 12:48 Abdomen/GI: Rectal exam: rectal tone normal, Stool: brown, guaiac negative, pm1 hemorrhoid(s), are not appreciated, tenderness, is not appreciated, [facility]. Vital Signs: 10:30 BP 157 / 81; Pulse 72; Resp 17; Temp 98.2; Pulse Ox 100% on R/A; Weight 74.39 kg; jl7 Height 5 ft. 9 in. (175.26 cm); Pain 6/10; 11:00 BP 172 / 74; Pulse 64; Resp 16; Pulse Ox 100% ; bp 12:00 BP 171 / 70; Pulse 65; Resp 16; Pulse Ox 96% ; bp 13:00 BP 163 / 78; Pulse 67; Resp 19; Pulse Ox 100% ; bp 14:00 BP 159 / 72; Pulse 66; Resp 18; Pulse Ox 100% ; bp 15:00 BP 179 / 73; Pulse 70; Resp 20; Pulse Ox 100% ; bp 20:30 BP 155 / 74; Pulse 69; Resp 17; Pulse Ox 100% on R/A; ll3 22:45 BP 172 / 78; Pulse 74; Resp 22; Pulse Ox 99% on R/A; ll3 10:30 Body Mass Index 24.22 (74.39 kg, 175.26 cm) jl7 MDM: 10:02 Patient medically screened. pm1 12:47 Physician consultation: Bonifacio Yeager MD was called at 12:40, was contacted at 12:40, pm1 regarding patient's condition, would like consultation with Dr. SON Mack, would like admission per Dr. Bryn Maxwell MD would like medications started, Transfusion of blood. 12:50 Counseling: I had a detailed discussion with the patient and/or guardian regarding: the pm1 historical points, exam findings, and any diagnostic results supporting the discharge/admit diagnosis, lab results, the need for further work-up and treatment in the hospital, Informed patient of discussion with Dr. Yeager, he would like her to be admitted with GI consult. 12:52 Data reviewed: vital signs. Data interpreted: Pulse oximetry: on room air is 100 %. pm1 Interpretation: normal. 08/09 09:57 Order name: CBC with Diff; Complete Time: 11:33 pm1 08/09 09:57 Order name: BMP; Complete Time: 11:33 pm1 08/09 09:57 Order name: Type And Screen pm1 08/09 12:48 Order name: Guiac; Complete Time: 14:52 em1 08/09 13:12 Order name: SARS-COV-2 RT PCR (Document "Date of Onset" if Symptomatic); Complete Time: em1 16:46 08/09 13:32 Order name: CBC with Automated Diff EDMS 08/09 12:51 Order name: Chest Single View XRAY; Complete Time: 13:38 pm1 08/09 13:32 Order name: CBC with Automated Diff EDMS 08/09 13:32 Order name: Magnesium EDMS 08/09 13:32 Order name: Magnesium EDMS 08/09 13:32 Order name: Phosphorus EDMS 08/09 13:32 Order name: Phosphorus EDMS 08/09 14:05 Order name: Packed RBCs (Additional Unit) EDMS 08/09 09:57 Order name: IV Saline Lock; Complete Time: 11:05 pm1 08/09 12:51 Order name: EKG; Complete Time: 12:52 pm1 08/09 12:51 Order name: EKG - Nurse/Tech; Complete Time: 15:29 pm1 08/09 12:59 Order name: Transfuse; Complete Time: 16:18 pm1 08/09 13:32 Order name: Clear Liquid EDMS Administered Medications: 13:00 Drug: ProTONIX (pantoprazole) 40 mg Route: IVP; Site: right antecubital; bp 16:18 Follow up: Response: No adverse reaction bp 16:18 Not Given (not on admitt): ProTONIX (pantoprazole) 8 mg/hr IV at 25 ml/hr continuous; bp (Standard dilution is 80 mg in 250 mL NS) Disposition Summary: 08/09/21 12:54 Hospitalization Ordered Hospitalization Status: Inpatient Admission pm1 Provider: Bryn Maxwell pm1 Condition: Stable pm1 Problem: new pm1 Symptoms: have improved pm1 Bed/Room Type: Standard pm1 Location: Telemetry/MedSurg (Inpatient)(08/09/21 20:29) cg Room Assignment: [place](08/09/21 20:29) Diagnosis - Anemia, unspecified - symptomatic(08/09/21 12:55) pm1 Discharge Instructions: - Discharge Summary Sheet em1 Forms: - Medication Reconciliation Form em1 - SBAR form em1 Addendum: 08/14/2021 07:45 Co-signature as Attending Physician, Magan Haji MD I agree with the assessment and c monsivais plan of care. Signatures: Dispatcher [employer] Magan Saenz MD MD cha Attema, Lee, EXTENSION COURSE COUNSELOR-C EXTENSION COURSE COUNSELOR-Cla1 Delores Pace, FLAVIA RN cg Dejon Townsend, PRECISION FARMING SPECIALIST PRECISION FARMING SPECIALIST pm1 Suhas Hardy, RN RN jl7 Jaime Mayorga RN RN bp Corrections: (The following items were deleted from the chart) 04/17 12:53 12:50 Counseling: I had a detailed discussion with the patient and/or guardian pm1 regarding: the historical points, exam findings, and any diagnostic results supporting the discharge/admit diagnosis, lab results, the need for further work-up and treatment in the hospital, pm1 12:54 12:47 Physician consultation: Bonifacio Yeager MD was called at 12:40, was contacted at pm1 12:40, regarding patient's condition, would like consultation with Dr. SON Mack, would like admission per Dr. Bryn Maxwell MD pm1 12:55 12:54 Anemia, unspecified pm1 pm1 16:21 12:54 Telemetry/MedSurg (Inpatient) pm1 bp 16:21 12:54 pm1 bp 20:29 16:21 [facility] ER HOLD bp cg 20: 16:21 ERHOLD- bp cg
--- NOTE | 2021-08-09 12:55 | ER ---
Nurse's Notes [facility] Name: Juliana Mclaughlin Age: 81 yrs Sex: Female : 1940 Arrival Date: 08/09/2021 Time: 09:05 Bed 7 Private MD: Diagnosis: Anemia, unspecified-symptomatic Presentation: 08/09 10:08 Chief complaint: Chief complaint: Patient states: Dr. Yeager called this morning and jl7 told me I need a blood transfusion and to come to ER. PCP did not provide pt with Hgb results. 10:30 Coronavirus screen: At this time, the client does not indicate any symptoms associated jl7 with coronavirus-19. Ebola Screen: No symptoms or risks identified at this time. Initial Sepsis Screen: Does the patient meet any 2 criteria? No. Patient's initial sepsis screen is negative. Does the patient have a suspected source of infection? No. Patient's initial sepsis screen is negative. Risk Assessment: Do you want to hurt yourself or someone else? Patient reports no desire to harm self or others. Onset of symptoms is unknown. 10:30 Method Of Arrival: Ambulatory jl7 10:30 Acuity: EMMA 3 jl7 Triage Assessment: 10:32 General: Appears in no apparent distress. uncomfortable, Behavior is calm, cooperative, jl7 appropriate for age. Pain: Complains of pain in left knee Pain currently is 6 out of 10 on a pain scale. Historical: - Allergies: 10:32 Codeine; jl7 10:32 Sulfa (Sulfonamide Antibiotics); jl7 - Home Meds: 10:32 amlodipine 10 mg tab 1 tab once daily [Active]; aspirin 81 mg Oral chew 1 tab once jl7 daily [Active]; atorvastatin 40 mg Oral tab 1 tab once daily [Active]; metoprolol tartrate 50 mg Oral tab 1 tab once daily [Active]; levothyroxine 75 mcg tab 1 tab once daily [Active]; pantoprazole 40 mg Oral TbEC 1 tab once daily [Active]; - PMHx: 10:32 Arthritis; CARPEL TUNNEL, VERTIGO; Hyperlipidemia; Hypertension; Kidney stones; jl7 - Immunization history:: Client reports receiving the 2nd dose of the Covid vaccine. - Social history:: Smoking status: Patient denies any tobacco usage or history of. Screenin:45 Abuse screen: Denies threats or abuse. Denies injuries from another. Nutritional bp screening: No deficits noted. Tuberculosis screening: No symptoms or risk factors identified. Fall Risk None identified. Assessment: 10:45 General: SEE TRIAGE NOTE. bp 13:00 Reassessment: No changes from previously documented assessment. Patient and/or family bp updated on plan of care and expected duration. Pain level reassessed. 15:00 Reassessment: No changes from previously documented assessment. Patient and/or family bp updated on plan of care and expected duration. Pain level reassessed. ADMIT INITIATED. 16:00 Reassessment: PT ON ER HOLD, SEE [facility]. bp Vital Signs: 10:30 BP 157 / 81; Pulse 72; Resp 17; Temp 98.2; Pulse Ox 100% on R/A; Weight 74.39 kg; jl7 Height 5 ft. 9 in. (175.26 cm); Pain 6/10; 11:00 BP 172 / 74; Pulse 64; Resp 16; Pulse Ox 100% ; bp 12:00 BP 171 / 70; Pulse 65; Resp 16; Pulse Ox 96% ; bp 13:00 BP 163 / 78; Pulse 67; Resp 19; Pulse Ox 100% ; bp 14:00 BP 159 / 72; Pulse 66; Resp 18; Pulse Ox 100% ; bp 15:00 BP 179 / 73; Pulse 70; Resp 20; Pulse Ox 100% ; bp 20:30 BP 155 / 74; Pulse 69; Resp 17; Pulse Ox 100% on R/A; ll3 22:45 BP 172 / 78; Pulse 74; Resp 22; Pulse Ox 99% on R/A; ll3 10:30 Body Mass Index 24.22 (74.39 kg, 175.26 cm) jl7 ED Course: 09:05 Patient arrived in ED. as 09:07 Suhas Hardy, FLAVIA is Primary Nurse. jl7 09:52 Dejon Townsend NP is PHCP. pm1 09:52 Magan Haji MD is Attending Physician. pm1 10:32 Triage completed. jl7 10:32 Arm band placed on right wrist. jl7 10:38 Jaime Mayorga, FLAVIA is Primary Nurse. bp 10:45 Patient has correct armband on for positive identification. Bed in low position. Call bp light in reach. Side rails up X2. Adult w/ patient. 10:50 Inserted saline lock: 20 gauge in right antecubital area, using aseptic technique. bp Blood collected. 12:54 Bryn Maxwell MD is Hospitalizing Provider. pm1 13:17 Chest Single View XRAY In Process Unspecified. EDMS 16:21 No provider procedures requiring assistance completed. Patient admitted, IV remains in bp place. Administered Medications: 13:00 Drug: ProTONIX (pantoprazole) 40 mg Route: IVP; Site: right antecubital; bp 16:18 Follow up: Response: No adverse reaction bp 16:18 Not Given (not on admitt): ProTONIX (pantoprazole) 8 mg/hr IV at 25 ml/hr continuous; bp (Standard dilution is 80 mg in 250 mL NS) Outcome: 12:54 Decision to Hospitalize by Provider. pm1 23:17 Admitted to Med/surg accompanied by nurse, via stretcher, room 214, with chart, Report ll3 called to FLAVIA Arroyo 23:17 Condition: stable 23:17 Discharge instructions given to patient, Instructed on the need for admit, Demonstrated understanding of instructions. 23:17 Patient left the ED. ll3 Signatures: Dispatcher [employer] EDMS Radha Murillo Patrick, CHILD DEVELOPMENT PROFESSOR CHILD DEVELOPMENT PROFESSOR pm1 Suhas Hardy RN RN jl7 Jaime Mayorga RN RN bp Vinicio Skaggs RN RN ll3 Corrections: (The following items were deleted from the chart) 10:32 10:08 Chief complaint: jl7 jl7
--- NOTE | 2021-08-09 13:25 | P.HP ---
Certification for Inpatient Patient will require the following post-hospital care: None Practitioner: I am a practitioner with admitting privileges, knowledge of patient current condition, hospital course, and medical plan of care. Services: Services provided to patient in accordance with Admission requirements found in Title 42 Section 412.3 of the Code of Federal Regulations Patient History Date of Service: 08/09/21 Reason for admission: Dizziness, Severe anemia, GI bleed. History of Present Illness: 81-year-old female patient with medical history significant for hypertension, coronary disease status post stent placement x2, hyperlipidemia, hypothyroidism who was evaluated in the emergency room for episode of dizziness. She does have a history of GI bleed and has had a significant intervention in the past. She had gone to her primary doctor and she had lab that revealed hemoglobin of 6.8 so she was asked to come to the emergency room for evaluation. In the ED repeat lab work revealed hemoglobin of 7.1 but she did report episode of dizziness, lethargy, fatigue. She also reported melanotic stools that has been going on for about 2 weeks. She reported that her last melanotic stool was about 2 days ago. No issues with vomiting blood or passing blood per rectum. She had denied overt episode of chest pain, fever, chills, rigor. She was asked to be evaluated as inpatient for blood transfusion and possible endoscopy and evaluation by display and banner designer for suspected GI bleed. Allergies Sulfa (Sulfonamide Antibiotics) Allergy (Severe, Verified 06/09/21 11:33) Nausea/Vomiting codeine Allergy (Intermediate, Verified 06/09/21 11:33) Hallucinate Home Medications: Amlodipine Besylate 10 mg PO [id number] 07/01/18 Aspirin [Aspirin EC 81 MG] 81 mg PO DAILY 07/01/18 Calcium Carbonate/Vitamin D3 [Calcium 600 with Vit D Chew Tb] 600 mg PO DAILY 07/01/18 Levothyroxine [Synthroid*] 75 mcg PO DAILY 07/01/18 Metoprolol Succinate 50 mg PO [id number] 07/01/18 Pantoprazole Sodium 40 mg PO DAILY 07/01/18 Atorvastatin Calcium 40 mg PO DAILY 08/21/18 - Past Medical/Surgical History Diabetic: No -: HTN -: HLD -: VERTIGO -: HYPOTHYROIDISM -: ARTHRITIS -: REFLUX -: STEBTS -: HYSTERECTOMY - Social History Alcohol use: No CD- Drugs: No Caffeine use: Yes Review of Systems General: Weakness, Malaise Eyes: Unremarkable ENT: Unremarkable Respiratory: Unremarkable Cardiovascular: Unremarkable Gastrointestinal: Melena Genitourinary: Unremarkable Musculoskeletal: Unremarkable Integumentary: Unremarkable Neurological: Unremarkable Physical Examination - Physical Exam General: Alert, Oriented x3 HEENT: Atraumatic, Normocephalic Neck: Supple Respiratory: Normal air movement Cardiovascular: Regular rate/rhythm, Normal S1 S2 Gastrointestinal: Soft and benign Musculoskeletal: No swelling - Studies Laboratory Data (last 24 hrs) 08/09/21 10:50: Sodium 142, Potassium 3.8, BUN 19 H, Creatinine 1.71 H, Glucose 112 H 08/09/21 10:50: WBC 5.4, Hgb 7.1 L, Hct 22.9 L, Plt Count 415 H Assessment and Plan - Plan 1. Severe anemia: Low hemoglobin paul 7.1 on admission. This is deemed secondary to GI bleed. We will trend hemoglobin. We will transfuse packed red cells to keep hemoglobin above 7.0. Gastroenterology following 2. GI bleed: She does have suspicion for GI bleed. This is deemed upper GI bleed. We will start pantoprazole 40 mg every 12. We will have liquid diet. [employer] to evaluate for endoscopy 3. Hypertension: We will monitor vital signs per unit protocol and continue with hypertensive medications. 4. CAD s/p stent x2: We will continue statin therapy and antiplatelet medications. Prophylaxis: SCDs due to GI bleed. Code status: Full code. - Advance Directives Does patient have a Living Will: No Does patient have a Durable POA for Healthcare: No
[2021-08-09] MEDS ORDERED: ONDANSETRON 4 MG/2 ML VIAL IV PRN (13:27)
[2021-08-09] MEDS ORDERED: SODIUM CHLORIDE 0.9% 10ML INJ IV PRN (13:30)
--- NOTE | 2021-08-09 13:32 | RAD REPORT ---
EXAM DESCRIPTION: Constantino Single View08/09/2021 1:16 pm CLINICAL HISTORY: sob COMPARISON: May 2021 FINDINGS: The lungs appear clear of acute infiltrate. The heart is mildly enlarged IMPRESSION: No acute abnormalities displayed
[2021-08-09] MEDS: NA CHLORIDE 0.9% 1,000 ML IV SCH (14:00)
[2021-08-09] MEDS: PANTOPRAZOLE 40 MG INJ IVP SCH (14:00)
[2021-08-09] MEDS ORDERED: PANTOPRAZOLE 40 MG INJ ONE (14:49)
[2021-08-09] MEDS ORDERED: NA CHLORIDE 0.9% 250 ML ONE ×2 (15:27→18:49)
[2021-08-09] MEDS ORDERED: NA CHLORIDE 0.9% 1,000 ML ONE (15:27)
[2021-08-09 18:16] VITALS: BMI 24.2
[2021-08-10] MEDS: PANTOPRAZOLE 40 MG INJ IVP SCH ×3 (00:04→20:27)
[2021-08-10] MEDS: NA CHLORIDE 0.9% 1,000 ML IV SCH ×3 (00:04→16:40)
[2021-08-10 05:30] LABS: Absolute Lymphocytes (CBC) 1.2 K/uL (0.7-4.9); Hematocrit 29.1 % (36.0-45.0); Lymphocytes % 18.4 % (15.3-44.8); MPV 7.1 fL (7.6-11.3)
[2021-08-10 05:48] LABS: Magnesium 1.8 mg/dL (1.8-2.4); Phosphorus 3.2 mg/dL (2.5-4.9); Potassium 3.6 mmol/L (3.5-5.1)
[2021-08-10] MEDS ORDERED: MAGNESIUM SULFATE 1 gm IVPB 1 GM/100 ML BAG IV ONE (08:00)
[2021-08-10] MEDS ORDERED: POTASSIUM CL SA 10 MEQ TAB PO ONE (09:00)
[2021-08-10] MEDS ORDERED: PNEUMOCOCCAL VACCINE 0.5 ML IMVAC ONE (09:00)
[2021-08-10 11:38] VITALS: O2SAT 100
[2021-08-10 16:31] LABS: Absolute Lymphocytes (CBC) 1.3 K/uL (0.7-4.9); Hematocrit 31.2 % (36.0-45.0); Lymphocytes % 27.9 % (15.3-44.8); MPV 7.2 fL (7.6-11.3); RBC Red Blood Cell Count 4.17 M/uL (3.86-4.86)
[2021-08-10] MEDS ORDERED: HYDRALAZINE HCL 20 MG/ML VIAL IV ONE (17:00)
[2021-08-10] MEDS: HYDROCODONE/APAP 10/325 TAB PO PRN (18:54)
[2021-08-11] MEDS ORDERED: DICYCLOMINE HCL 10 MG CAP PO PRN (01:33)
[2021-08-11] MEDS ORDERED: HYDRALAZINE HCL 20 MG/ML VIAL IV PRN (01:33)
[2021-08-11] MEDS: NA CHLORIDE 0.9% 1,000 ML IV SCH (05:27)
[2021-08-11] MEDS: HYDROCODONE/APAP 10/325 TAB PO PRN (05:35)
[2021-08-11] MEDS ORDERED: AMLODIPINE 10 MG TAB PO SCH (06:00)
[2021-08-11] MEDS ORDERED: METOPROLOL XL 50 MG TAB PO SCH (06:00)
[2021-08-11 06:26] LABS: Hematocrit 33.1 % (36.0-45.0); Lymphocytes % 29.2 % (15.3-44.8); MPV 7.3 fL (7.6-11.3); RBC Red Blood Cell Count 4.44 M/uL (3.86-4.86)
[2021-08-11 06:38] LABS: Albumin 3.5 g/dL (3.4-5.0); Bilirubin Total 0.7 mg/dL (0.2-1.0); Magnesium 2.1 mg/dL (1.8-2.4); Potassium 3.9 mmol/L (3.5-5.1); Protein, Total 7.5 g/dL (6.4-8.2)
[2021-08-11 07:15] LABS: Anisocytosis 1+; Blood Morphology Comment NOTED (NOT SEEN); Hypochromasia 1+; Platelet Estimate ADEQ; White Blood Cell Scan OK (OK)
[2021-08-11] MEDS ORDERED: LEVOTHYROXINE SOD 0.075 MG TAB PO SCH (09:00)
[2021-08-11] MEDS ORDERED: PANTOPRAZOLE 40MG TABLET PO SCH (09:00)
[2021-08-11] MEDS ORDERED: POTASSIUM CL SA 10 MEQ TAB PO ONE (09:00)
[2021-08-11] MEDS ORDERED: DULOXETINE 20 MG CAP PO SCH (09:00)
[2021-08-11 13:32] VITALS: BP 126/76; TEMP 97.7
[2021-08-11] MEDS ORDERED: ATORVASTATIN 40 MG TAB PO SCH (21:00)
== END 2021-08-11 13:49 | disposition home or self-care (01) | DRG 812 ==
LOC: ER 08:55 → ERHOLD 13:27 → 2ND 20:37
PROVIDERS: ADMIT Internal Medicine Nephrology; ATTEND Internal Medicine Nephrology
PROC: 30233N1 Transfusion of Nonautologous Red Blood Cells into Peripheral Vein, Percutaneous Approach (ICD-10-PCS; principal; 2021-08-09)
DX: D64.9 Anemia, unspecified (principal); K92.1 Melena; I10 Essential (primary) hypertension; I25.10 Atherosclerotic heart disease of native coronary artery without angina pectoris; E78.5 Hyperlipidemia, unspecified; E03.9 Hypothyroidism, unspecified; Z95.5 Presence of coronary angioplasty implant and graft; Z88.2 Allergy status to sulfonamides; Z79.82 Long term (current) use of aspirin; Z20.822 Contact with and (suspected) exposure to COVID-19
CPT/HCPCS: 36415; 71045; 80048; 80053; 82272; 83735; 84100; 85025; 86850; 86900; 86901; 93005; 96374; 99285; C9113; J0360; J3475; J7030; J7050; P9016; U0003